=== PATIENT | female | born 1930 | race Caucasian/White ===

== ENCOUNTER 2018-09-18 09:38 | Inpatient (IN) ==
--- NOTE | 2018-09-18 10:14 | Emergency Department Note ---
SOB HPI - General Chief Complaint: Shortness of Breath/Dyspnea Stated Complaint: SOB Time Seen by Provider: 09/18/18 09:48 Source: patient Mode of arrival: wheelchair Limitations: no limitations - History of Present Illness This patient has had some mild shortness of breath for the last 2 to 3 days without cough or chest pain. [facility] and was found to be hypoxic and sent over here where her O2 saturation was 80% on room air. She certainly is in no distress and is comfortable. No recent edema. No history of asthma COPD heart failure. - Related Data Home Medications Medication Instructions Recorded Confirmed levothyroxine 137 mcg tablet 137 mcg PO QDAY tab 09/03/14 08/17/18 carboxymethylcellulose sodium 0.5 1 drp OPHTHALMIC QDAY PRN ml 12/10/17 08/17/18 % eye drops cholecalciferol (vitamin D3) 1,000 1,000 unit PO QDAY 12/10/17 08/17/18 unit capsule memantine 5 mg tablet 10 mg PO BID tab 12/10/17 08/17/18 chlorpheniramine 2 mg-DM 15 2 tab PO Q6H PRN 04/08/18 08/17/18 mg-acetaminophen 500 mg tablet capsaicin 0.1 % topical cream 1 applic TOPICAL BID PRN 08/04/18 08/17/18 donepezil 5 mg tablet 5 mg PO QDAY 08/04/18 08/17/18 Previous Rx's Medication Instructions Recorded citalopram 20 mg tablet 20 mg PO QDAY #7 tab 12/26/17 tamsulosin 0.4 mg capsule 0.4 mg PO QDAY #30 cap 06/08/18 carvedilol 6.25 mg tablet 6.25 mg PO BID 30 Days #60 tab 07/13/18 fluticasone furoate 100 1 inh INHALATION QDAY #28 each 07/30/18 mcg-vilanterol 25 mcg/dose inhalation powder amlodipine 5 mg tablet 10 mg PO QDAY #60 tab 08/04/18 prednisone 10 mg tablet See Rx Instructions .ROUTE 08/17/18 .COMPLEX #21 tab Allergies Allergy/AdvReac Type Severity Reaction Status Date / Time ciprofloxacin Allergy Unknown Unknown Verified 09/18/18 09:40 Sulfa (Sulfonamide Allergy Unknown Unknown Verified 09/18/18 09:40 Antibiotics) Review of Systems All systems ED: reviewed and negative except as stated. Past Medical History - Past Medical History [facility] Narrative: Medical History (Last Reviewed 09/18/18 @ 09:41 by Julieta Fontanez DO) Carotid stenosis (Chronic) Bilateral carotid bruits (Chronic) Pulmonary arterial hypertension (Chronic) Dermatitis (Acute) Memory dysfunction (Chronic) Heart murmur (Chronic) Hormone replacement therapy (HRT) (Chronic) Chronic kidney disease, stage IV (severe) (Chronic) Hyperparathyroidism due to renal insufficiency (Chronic) Edema (Chronic) Secondary hyperparathyroidism of renal origin (Chronic) Radiculopathy, lumbosacral or thoracic (Chronic) Progressive bulbar palsy (Chronic) UTI (urinary tract infection) (Chronic) Menopausal syndrome (Chronic) History of malignant neoplasm of kidney (Chronic) History of lymphoid leukemia (Chronic) Insomnia (Acute) Hypothyroidism (Acute) Hypertensive renal disease (Chronic) Hypertension, essential (Acute) Pure hypercholesterolemia (Acute) Cystocele, midline (Acute) Anxiety (Acute) Anemia in chronic kidney disease (Acute) Acquired absence of kidney (Acute) Acidosis (Resolved) Acute kidney failure (Resolved) History of hysterectomy (Resolved) Rectovaginal fistula (Resolved) Renal insufficiency (Resolved) Rhinitis, allergic (Resolved) Past Surgical History (Last Reviewed 08/04/18 @ 15:32 by Gigi Merino MD) History of nephrectomy (Acute) History of appendectomy (Resolved) History of bladder repair surgery (Resolved) Family History (Last Reviewed 08/04/18 @ 15:32 by Gigi Merino MD) Unknown Type 2 diabetes mellitus Family history of malignant neoplasm Other HTN (hypertension) - Social History smoking status: Never smoker Physical Exam Limitations: no limitations General appearance: alert Head: atraumatic Eye: Present: normal appearance ENT: normal exam Neck: Present: normal inspection Chest: Present: normal inspection Respiratory: Present: other (Decreased breath sounds at the bases) Cardiovascular: Present: regular rate, normal rhythm, normal heart sounds Neurological: Present: alert Psychiatric: Present: normal affect Skin: Present: warm, dry Course Vital Signs Temperature 97.4 F 09/18/18 09:40 Pulse Rate 72 09/18/18 09:40 Respiratory Rate 20 09/18/18 09:40 Blood Pressure 131/60 09/18/18 09:40 Pulse Oximetry (%) 82 L 09/18/18 09:40 Temperature 97.4 F 09/18/18 09:40 Pulse Rate 71 09/18/18 13:00 Respiratory Rate 20 09/18/18 09:40 Blood Pressure 138/67 09/18/18 13:01 Pulse Oximetry (%) 95 09/18/18 13:00 Shortness of Breath/Dyspnea - [facility] Narrative Medical decision making narrative: Patient's chest x-ray was read as showing heart failure and her BNP was 3700. She did have a white count 20,000 which is unexplained. We will do cultures and start empiric antibiotic out aches and she will be admitted to the hospital by Dr. Marie - Lab Data Lab results reviewed: Yes I reviewed the patient's lab results. Result diagrams: 09/18/18 09:51 09/18/18 09:51 Lab Results 09/18/18 09/18/18 09/18/18 Range/Units 09:51 09:51 09:51 WBC 20.4 H (4.5-11.0) K/mcL RBC 3.50 L (4.00-5.20) M/mcL Hgb 9.3 L (12.0-15.0) g/dL Hct 29.5 L (36.0-48.0) % MCV 84.3 (80.0-100.0) fL MCH 26.5 (26.0-34.0) pg MCHC 31.5 (31.0-36.0) g/dL RDW 18.8 H (11.5-14.5) % Plt Count 214 (140-440) K/mcL MPV 8.3 (7.4-10.4) fL Gran % 26.2 L (38.0-78.0) % Lymph % (Auto) 69.3 H (15.5-49.0) % [place] % (Auto) 3.2 (1.0-12.0) % Eos % (Auto) 1.0 (0.0-7.0) % Baso % (Auto) 0.3 (0.0-2.0) % Gran # 5.4 (1.8-8.0) K/mcL Lymph # (Auto) 14.1 H (1.5-4.8) K/mcL [place] # (Auto) 0.7 (0.1-0.9) K/mcL Eos # (Auto) 0.2 (0.0-0.7) K/mcL Baso # (Auto) 0.1 (0.0-0.3) K/mcL VBG Lactic Acid (0.5-2.0) mmol/L Sodium 140 (133-145) mmol/L Potassium 4.1 (3.3-5.1) mmol/L Chloride 105 (96-108) mmol/L Carbon Dioxide 22 (22-30) mmol/L Anion Gap 13.0 (8-16) BUN 41 H (8-23) mg/dl Creatinine 2.1 H (0.6-1.1) mg/dl GFR Calculation 20 Glucose 110 H (70-105) mg/dL Calcium 8.6 (8.6-10.4) mg/dl Total Bilirubin 0.5 (0.0-1.0) mg/dL AST 9 (0-37) U/l ALT 10 (0-40) U/l Alkaline Phosphatase 81 (39-117) U/L Troponin T (0-0.03) ng/ml NT-Pro-B Natriuret Pep 3731.0 H (0-450) pg/ml Total Protein 6.2 (5.9-8.4) gm/dL Albumin 3.7 (3.2-5.2) gm/dL Globulin 2.5 (2.2-3.7) gm/dL Albumin/Globulin Ratio 1.5 (1.0-2.3) 09/18/18 09/18/18 Range/Units 09:51 11:25 WBC (4.5-11.0) K/mcL RBC (4.00-5.20) M/mcL Hgb (12.0-15.0) g/dL Hct (36.0-48.0) % MCV (80.0-100.0) fL MCH (26.0-34.0) pg MCHC (31.0-36.0) g/dL RDW (11.5-14.5) % Plt Count (140-440) K/mcL MPV (7.4-10.4) fL Gran % (38.0-78.0) % Lymph % (Auto) (15.5-49.0) % [place] % (Auto) (1.0-12.0) % Eos % (Auto) (0.0-7.0) % Baso % (Auto) (0.0-2.0) % Gran # (1.8-8.0) K/mcL Lymph # (Auto) (1.5-4.8) K/mcL [place] # (Auto) (0.1-0.9) K/mcL Eos # (Auto) (0.0-0.7) K/mcL Baso # (Auto) (0.0-0.3) K/mcL VBG Lactic Acid 0.6 (0.5-2.0) mmol/L Sodium (133-145) mmol/L Potassium (3.3-5.1) mmol/L Chloride (96-108) mmol/L Carbon Dioxide (22-30) mmol/L Anion Gap (8-16) BUN (8-23) mg/dl Creatinine (0.6-1.1) mg/dl GFR Calculation Glucose (70-105) mg/dL Calcium (8.6-10.4) mg/dl Total Bilirubin (0.0-1.0) mg/dL AST (0-37) U/l ALT (0-40) U/l Alkaline Phosphatase (39-117) U/L Troponin T < 0.01 (0-0.03) ng/ml NT-Pro-B Natriuret Pep (0-450) pg/ml Total Protein (5.9-8.4) gm/dL Albumin (3.2-5.2) gm/dL Globulin (2.2-3.7) gm/dL Albumin/Globulin Ratio (1.0-2.3) - Radiology Data Radiology results reviewed: Yes I reviewed the patient's radiology results. Disposition Pt seen by PHYSICIAN PRESIDENT/PA only: No Clinical Impression: Congestive heart failure Disposition: Xfer As Inpt ([facility]) Condition: Good Referrals: William Redd MD, FAAFP [Primary Care Provider] - Time of Disposition: 13:13
[2018-09-18 10:27] LABS: Basophils # (Auto) 0.1 K/mcL (0.0-0.3); Basophils % (Auto) 0.3 % (0.0-2.0); Eosinophils # (Auto) 0.2 K/mcL (0.0-0.7); Granulocytes % (Auto) 26.2 % (38.0-78.0); Hematocrit 29.5 % (36.0-48.0); Hemoglobin 9.3 g/dL (12.0-15.0); Lymphocytes # (Auto) 14.1 K/mcL (1.5-4.8); Lymphocytes % (Auto) 69.3 % (15.5-49.0); Mean Cell Volume 84.3 fL (80.0-100.0); Mean Corpuscular HGB Conc 31.5 g/dL (31.0-36.0); Mean Platelet Volume 8.3 fL (7.4-10.4); Monocytes # (Auto) 0.7 K/mcL (0.1-0.9); Monocytes % (Auto) 3.2 % (1.0-12.0); Platelet Count 214 K/mcL (140-440); Red Cell Distribution Width 18.8 % (11.5-14.5); WBC 20.4 K/mcL (4.5-11.0)
[2018-09-18 10:43] LABS: ALT/SGPT 10 U/l (0-40); AST/SGOT 9 U/l (0-37); Albumin 3.7 gm/dL (3.2-5.2); Albumin/Globulin Ratio 1.5 (1.0-2.3); Alkaline Phosphatase 81 U/L (39-117); Bilirubin,Total 0.5 mg/dL (0.0-1.0); Blood Urea Nitrogen 41 mg/dl (8-23); Calcium 8.6 mg/dl (8.6-10.4); Carbon Dioxide 22 mmol/L (22-30); Chloride 105 mmol/L (96-108); Globulin 2.5 gm/dL (2.2-3.7); Glomerular Filtration Rate 20; Glucose 110 mg/dL (70-105)
--- NOTE | 2018-09-18 11:35 | XRay Report ---
CLINICAL INFORMATION: SOB COMPARISON: 06/29/2018 FINDINGS: The heart is now moderately enlarged. Mediastinum is unremarkable. Pulmonary vessels are mildly distended and is mild interstitial edema throughout both lungs. Moderate left and small right pleural effusion have developed and there is mild compressive atelectasis in both lower lobes. IMPRESSION: Moderate CHF. Moderate left and small right pleural effusion with minor overlying lower lobe atelectasis Interpreted and Authenticated by: Meño Adams 09/18/18
[2018-09-18] MEDS ORDERED: FUROSEMIDE 20 MG/2 ML VIAL IV ONE (12:09)
[2018-09-18] MEDS ORDERED: cefTRIAXone 1 GM VIAL IV ONE (13:11)
[2018-09-18] MEDS ORDERED: LEVOFLOXACIN 750 MG/150 ML BAG IV ONE (13:11)
[2018-09-18] MEDS ORDERED: AZITHROMYCIN 500 MG in DEXTROSE 5% IN WATER 250 ML IV ONE (13:23)
--- NOTE | 2018-09-18 13:39 | Internal Med History&Physical ---
Medical - H&P: [facility] Patient information: Note initiated : 09/18/18 at 1:35 pm Service Date, if different from initiated Date: [] Patient: Mihaela Drake a 88 y/o F admitted on for Shortness of breath. Chief Complaint: [] Chief complaint: SOB History of present illness: Ms. Drake is a 88 year old F resident of [facility] assisted living who presents to the ER with 3-day onset of worsening shortness of breath. Patient has been at baseline state of health however over the last 48 hours has dramatically declined with increasing shortness of breath and decreasing mobility and functionality. Patient has not been able to perform activities of daily living. She was subsequently evaluated at the ER. Initial work-up was consistent with CHF exacerbation on imaging along with white count over 20,000. Patient was started on antibiotic coverage along with initiation of diuresis. However exact source of infection could not be identified. Echocardiogram from April 2018 shows preserved EF. Hospitalist service was consulted for admission in light of above. At the time of evaluation patient is alert oriented. She is feeling better. Able to answer most of the question and endorsed to history as above. She denies recent changes in medication. She denies productive sputum, shaking chills, chest pain or unilateral weakness. She further denies diarrhea dysuria joint pain but endorses to frequent bruising. She denies high salt diet. She denies choking episodes. 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) Edema (Chronic) Secondary hyperparathyroidism of renal origin (Chronic) PTH now supressed to 53, calcium at goal, vitamin D is adequate at 48 reduce calcitriol to 0.25mcg every other day ct cholecalciferol will monitor will monitor will monitor Radiculopathy, lumbosacral or thoracic (Chronic) Progressive bulbar palsy (Chronic) UTI (urinary tract infection) (Chronic) Menopausal syndrome (Chronic) History of malignant neoplasm of kidney (Chronic) History of lymphoid leukemia (Chronic) Insomnia (Acute) Hypothyroidism (Acute) Hypertensive renal disease (Chronic) BP at goal today ct amlodipine, coreg and torsemide follow low sodium diet will monitor Hypertension, essential (Acute) Pure hypercholesterolemia (Acute) Cystocele, midline (Acute) Anxiety (Acute) Anemia in chronic kidney disease (Acute) Acquired absence of kidney (Acute) Acidosis (Resolved) Acute kidney failure (Resolved) History of hysterectomy (Resolved) Rectovaginal fistula (Resolved) Renal insufficiency (Resolved) Rhinitis, allergic (Resolved) Surgical History History of nephrectomy (Acute) History of appendectomy (Resolved) History of bladder repair surgery (Resolved) Family History Unknown Type 2 diabetes mellitus Family history of malignant neoplasm Other HTN (hypertension) Social History marital status: occupational status: retired other: 07/2012 smoking status: Never smoker alcohol intake frequency: does not drink substance use type: does not use Medical - H&P: Meds Home Medications Medication Instructions Recorded Confirmed Type levothyroxine 137 mcg tablet 137 mcg PO QDAY tab 09/03/14 09/18/18 History carboxymethylcellulose sodium 0.5 1 drp OPHTHALMIC QDAY PRN ml 12/10/17 09/18/18 History % eye drops cholecalciferol (vitamin D3) 1,000 1,000 unit PO QDAY 12/10/17 09/18/18 History unit capsule memantine 5 mg tablet 10 mg PO BID tab 12/10/17 09/18/18 History citalopram 20 mg tablet 20 mg PO QDAY #7 tab 12/26/17 09/18/18 Rx carvedilol 6.25 mg tablet 6.25 mg PO BID 30 Days #60 tab 07/13/18 09/18/18 Rx fluticasone furoate 100 1 inh INHALATION QDAY #28 each 07/30/18 09/18/18 Rx mcg-vilanterol 25 mcg/dose inhalation powder amlodipine 5 mg tablet 10 mg PO QDAY #60 tab 08/04/18 09/18/18 Rx capsaicin 0.1 % topical cream 1 applic TOPICAL BID PRN 08/04/18 09/18/18 History Acetaminophen [Pain Reliever] 500 mg PO Q8 PRN 09/18/18 09/18/18 History Acetaminophen/Chlorpheniramine 2 each PO Q6 09/18/18 09/18/18 History [Coricidin Hbp Cold & Flu Tab] Aspirin [Lite Coat Aspirin] 325 mg PO DAILY 09/18/18 09/18/18 History Donepezil [Aricept] 10 mg PO DAILY 09/18/18 09/18/18 History Menthol [Cough Drops] 5 mg MM PRN PRN 09/18/18 09/18/18 History Tamsulosin [Flomax] 0.4 mg PO ONCE 09/18/18 09/18/18 History Allergies Allergy/AdvReac Type Severity Reaction Status Date / Time ciprofloxacin Allergy Unknown Unknown Verified 09/18/18 09:40 Sulfa (Sulfonamide Allergy Unknown Unknown Verified 09/18/18 09:40 Antibiotics) Medical - H&P: Exam - Constitutional Vitals: Temp Pulse Resp BP Pulse Ox 97.4 F 72 20 144/65 94 09/18/18 09:40 09/18/18 13:35 09/18/18 09:40 09/18/18 13:31 09/18/18 13:35 General appearance: average body habitus, no acute distress Exam: Alert oriented Eye movement symmetrical Oral cavity dry No ear nose discharge Head normocephalic Neck no lymphadenopathy S1-S2 occasionally irregular, ESM grade 1 diminished breath sounds bilateral bases Abdomen soft nontender Lower extremity no cyanosis clubbing no joint swelling Skin no suspicious lesion Psych alert cooperative Neuro nonfocal Medical - H&P: Reslt - Labs CBC & Chem 7: 09/19/18 03:45 09/19/18 03:45 Labs: Short CBC 09/18/18 Range/Units 09:51 WBC 20.4 H (4.5-11.0) K/mcL Hgb 9.3 L (12.0-15.0) g/dL Hct 29.5 L (36.0-48.0) % Plt Count 214 (140-440) K/mcL BMP 09/18/18 09:51 Sodium 140 Potassium 4.1 Chloride 105 Carbon Dioxide 22 BUN 41 H Creatinine 2.1 H Glucose 110 H Calcium 8.6 Cardiac Enzymes 09/18/18 Range/Units 09:51 Troponin T < 0.01 (0-0.03) ng/ml Liver Function 09/18/18 Range/Units 09:51 Total Bilirubin 0.5 (0.0-1.0) mg/dL AST 9 (0-37) U/l ALT 10 (0-40) U/l Alkaline Phosphatase 81 (39-117) U/L Albumin 3.7 (3.2-5.2) gm/dL Medical - H&P: A/P (1) Congestive heart failure Current visit: Yes Status: Acute * Acute decompensate heart failure diastolic with preserved ejection fraction as of echo April 2018 61% EF. Continue diuresis/supplemental oxygen/low-salt diet and medication optimization. Admit to telemetry * Leukocytosis/early sepsis. White count 20,000. Unclear etiology. Empiric antibiotic initiated after boudreaux cultures. Continue source evaluation. De- escalate antibiotics based on cultures. * Dyspnea with hypoxia secondary to above. Continue supplemental oxygen/pulmonary toilet/bronchodilators * History of dementia continue donepezil/memantine * Anxiety disorder continue citalopram * Hypothyroidism continue thyroxine * History of COPD continue bronchodilators/steroids * Hypertension continue amlodipine/Coreg * DNR * Prophylaxis heparin Plan * Broad antibiotic coverage * Supplemental oxygen/pulmonary toilet * Initiate aggressive diuresis * Inpatient telemetry admit in light of advanced age/PSI over 100/acute dec ompensated heart failure * Aggressive source evaluation pre-existing well condition management as above
[2018-09-18] MEDS ORDERED: ONDANSETRON 4 MG/2 ML VIAL IV PRN (14:51)
[2018-09-18] MEDS ORDERED: MAGNESIUM SULFATE 2 GM/50 ML BAG IV PRN (14:51)
[2018-09-18] MEDS ORDERED: ACETAMINOPHEN 1,000 MG/100 ML BOTTLE IV PRN (14:51)
[2018-09-18] MEDS ORDERED: ACETAMINOPHEN 325 MG TABLET PO PRN (14:51)
[2018-09-18] MEDS ORDERED: POTASSIUM CHLORIDE 40 MEQ in DEXTROSE 5% IN WATER 500 ML IV PRN (14:51)
[2018-09-18] MEDS: 0.9 % SODIUM CHLORIDE 10 ML SYRINGE IV SCH ×4 (15:12→21:04)
[2018-09-18] MEDS: PIPERACILLIN SODIUM/TAZOBACTAM 2.25 GM in DEXTROSE 5% IN WATER 50 ML IV SCH ×3 (15:44→23:51)
[2018-09-18] MEDS: IPRATROPIUM/ALBUTEROL 3 ML AMPUL.NEB NEB SCH ×3 (15:48→23:07)
[2018-09-18] MEDS: FUROSEMIDE 40 MG/4 ML VIAL IV SCH (16:20)
[2018-09-18] MEDS ORDERED: ACETAMINOPHEN 500 MG TABLET PO PRN (18:26)
[2018-09-18] MEDS ORDERED: MENTHOL 5 MG MM PRN (18:26)
[2018-09-18] MEDS ORDERED: CAPSAICIN TOPICAL PRN (18:26)
[2018-09-18] MEDS ORDERED: CARBOXYMETHYLCELLULOSE SODIUM D OPHTHALMIC PRN (18:26)
[2018-09-18] MEDS: BUDESONIDE 0.5 MG/2 ML AMPUL.NEB NEB SCH (18:59)
[2018-09-18] MEDS ORDERED: traZODone HCL 50 MG TABLET PO PRN (21:00)
[2018-09-18] MEDS ORDERED: MELATONIN 3 MG TABLET PO PRN (21:00)
[2018-09-18] MEDS: DOCUSATE SODIUM 100 MG CAPSULE PO SCH (21:03)
[2018-09-18] MEDS: MEMANTINE 10 MG TABLET PO SCH (21:03)
[2018-09-18] MEDS: TAMSULOSIN 0.4 MG CAPSULE PO SCH (21:03)
[2018-09-18] MEDS: SENNOSIDES/DOCUSATE SODIUM 1 TAB TABLET PO SCH (21:03)
[2018-09-18] MEDS: CARVEDILOL 6.25 MG TABLET PO SCH ×2 (21:04)
[2018-09-18] MEDS: HEPARIN 5,000 UNIT/ML VIAL SQ SCH (21:04)
[2018-09-19] MEDS ORDERED: CHLORPHENIRAMINE PO SCH
[2018-09-19] MEDS ORDERED: [UNRECOGNIZED DRUG - OTHER] PO SCH
[2018-09-19] MEDS ORDERED: ACETAMINOPHEN PO SCH
[2018-09-19] MEDS: PIPERACILLIN SODIUM/TAZOBACTAM 2.25 GM in DEXTROSE 5% IN WATER 50 ML IV SCH ×4 (05:30→23:57)
[2018-09-19] MEDS: IPRATROPIUM/ALBUTEROL 3 ML AMPUL.NEB NEB SCH ×6 (05:30→22:46)
[2018-09-19] MEDS: 0.9 % SODIUM CHLORIDE 10 ML SYRINGE IV SCH ×8 (05:31→21:04)
[2018-09-19 05:35] LABS: Hematocrit 25.9 % (36.0-48.0); Hemoglobin 8.3 g/dL (12.0-15.0); Mean Cell Volume 85.4 fL (80.0-100.0); Mean Platelet Volume 8.4 fL (7.4-10.4); Platelet Count 190 K/mcL (140-440); RBC 3.03 M/mcL (4.00-5.20); Red Cell Distribution Width 19.5 % (11.5-14.5); WBC 16.3 K/mcL (4.5-11.0)
[2018-09-19 05:51] LABS: ALT/SGPT 8 U/l (0-40); AST/SGOT 8 U/l (0-37); Albumin 3.1 gm/dL (3.2-5.2); Albumin/Globulin Ratio 1.3 (1.0-2.3); Alkaline Phosphatase 69 U/L (39-117); Bilirubin,Direct < 0.2 mg/dL (0.0-0.3); Bilirubin,Total 0.6 mg/dL (0.0-1.0); Blood Urea Nitrogen 39 mg/dl (8-23); C-Reactive Protein 2.3 mg/dl (0.0-0.8); Carbon Dioxide 24 mmol/L (22-30); Chloride 103 mmol/L (96-108); Globulin 2.3 gm/dL (2.2-3.7); Glomerular Filtration Rate 20; Glucose 79 mg/dL (70-105); Lactate Dehydrogenase 240 U/L (94-250); Phosphorous 5.4 mg/dL (2.7-4.5); Triglycerides 66 mg/dl (<150); Uric Acid 9.5 mg/dL (2.5-8.0)
[2018-09-19 06:36] LABS: Erythrocyte Sedimentation Rate 22 mm/hr (0-20)
[2018-09-19 06:57] LABS: Anisocytosis 1+ (NONE SEEN); Band Neutrophils % 1 % (0-10); Eosinophils % (Manual) 3 % (0-7); Hypochromasia 1+ (NONE SEEN); Lymphocytes % 65 % (15-49); Monocytes % (Manual) 3 % (1-12); Platelet Estimate NORMAL (NORMAL); Polychromasia FEW (NONE SEEN); RBC Morphology ABNORM (NORMAL); Reactive Lymphocytes 4 % (0-2); Segmented Neutrophils % 24 % (38-78)
[2018-09-19] MEDS: LEVOTHYROXINE 25 MCG TABLET PO SCH (07:32)
[2018-09-19] MEDS: LEVOTHYROXINE SODIUM 112 MCG TABLET PO SCH (07:32)
[2018-09-19] MEDS: BUDESONIDE 0.5 MG/2 ML AMPUL.NEB NEB SCH ×2 (07:53→22:46)
[2018-09-19] MEDS ORDERED: VANCOMYCIN PER PHARMACY IV SCH (08:02)
[2018-09-19] MEDS: CARVEDILOL 6.25 MG TABLET PO SCH ×2 (08:05→17:51)
[2018-09-19] MEDS: FUROSEMIDE 40 MG/4 ML VIAL IV SCH ×2 (08:05→16:14)
[2018-09-19] MEDS ORDERED: VANCOMYCIN 1,000 MG in 0.9 % SODIUM CHLORIDE 250 ML IV ONE (09:00)
[2018-09-19] MEDS: amLODIPine 10 MG TABLET PO SCH (09:20)
[2018-09-19] MEDS: CITALOPRAM 20 MG TABLET PO SCH (09:20)
[2018-09-19] MEDS: DOCUSATE SODIUM 100 MG CAPSULE PO SCH ×2 (09:20→21:04)
[2018-09-19] MEDS: MULTIVIT,THER IRON,CA,FA & MIN 1 TABLET PO SCH (09:21)
[2018-09-19] MEDS: VITAMIN D3 1,000 UNIT TABLET PO SCH (09:21)
[2018-09-19] MEDS: THIAMINE 100 MG TABLET PO SCH (09:21)
[2018-09-19] MEDS: FOLIC ACID 1 MG TABLET PO SCH (09:21)
[2018-09-19] MEDS: DONEPEZIL 10 MG TABLET PO SCH (09:21)
[2018-09-19] MEDS: ASPIRIN 325 MG ENTERIC COATED TABLET PO SCH (09:21)
[2018-09-19] MEDS: HEPARIN 5,000 UNIT/ML VIAL SQ SCH ×2 (09:21→21:03)
[2018-09-19] MEDS: MEMANTINE 10 MG TABLET PO SCH ×2 (09:21→21:05)
[2018-09-19] MEDS: Fluticasone/Vilanterol [Breo Ellipta] 100-25 Mcg Inhaler INH SCH (09:31)
[2018-09-19 10:12] LABS: Appearance,Urine HAZY; Bacteria,Urine FEW /hpf (0); Bilirubin,Urine NEG (NEG); Color,Urine YELLOW; Culture Indicated,Urine NO; Glucose,Urine (UA) NEGATIVE (NEG); Ketones,Urine NEG (NEG); Leukocyte Esterase,Urine 500 /uL (NEG); Nitrate,Urine NEG (NEG); Protein,Urine NEG (NEG); Specific Gravity,Urine 1.009 (1.000-1.035); Urine Blood 0.03 mg/dL (<0.03); Urine RBC 8 /hpf (0-1); Urine Squamous Epithelial Cell 1 /hpf (0-4); Urine WBC > 182 /hpf (0-4); Urobilinogen,Urine NEG (NEG)
--- NOTE | 2018-09-19 10:20 | Internal Med Progress Note ---
Medical - PN: Subj Patient information: Note initiated : 09/19/18 at 10:14 am Service Date, if different from initiated Date: [] Patient: Mihaela Drake a 88 y/o F admitted on 09/18/18 for Shortness of breath. Chief Complaint: [] Interval history: Ms. Drake is a 88 year old F resident of [facility] assisted living who presents to the ER with 3-day onset of worsening shortness of breath. Patient has been at baseline state of health however over the last 48 hours has dramatically declined with increasing shortness of breath and decreasing mobility and functionality. Patient has not been able to perform activities of daily living. She was subsequently evaluated at the ER. Initial work-up was consistent with CHF exacerbation on imaging along with white count over 20,000. Patient was started on antibiotic coverage along with initiation of diuresis. However exact source of infection could not be identified. Echocardiogram from April 2018 shows preserved EF. Hospitalist service was consulted for admission in light of above. At the time of evaluation patient is alert oriented. She is feeling better. Able to answer most of the question and endorsed to history as above. She denies recent changes in medication. She denies productive sputum, shaking chills, chest pain or unilateral weakness. She further denies diarrhea dysuria joint pain but endorses to frequent bruising. She denies high salt diet. She denies choking episodes. 09/19-patient doing well. Diuresed well overnight. Improved shortness of breath. Able to talk in full sentences. Blood cultures positive for gram- positive cocci. Vancomycin initiated. Unclear source. However white count down from 20,400-16.3. Afebrile. UA shows significant pyuria. Await cultures. Continue antibiotic coverage. - Constitutional Vitals: Vital Signs Temp Pulse Resp BP Pulse Ox 98.7 F 77 16 147/62 95 09/19/18 07:42 09/19/18 07:55 09/19/18 07:55 09/19/18 07:42 09/19/18 07:55 Period Temp Pulse Resp BP Sys/Dejesus Pulse Ox Last 24 Hr 96.9 F-98.7 F 64-83 13-24 129-147/55-71 85-97 Intake and Output 09/18/18 09/19/18 09/19/18 21:59 05:59 13:59 Intake Total 450 50 420 Output Total 381 2 77 Balance 69 48 343 Weight 135 lb 4 oz Intake & Output: Intake & Output 09/18/18 09/19/18 09/19/18 21:59 05:59 13:59 Intake Total 450 50 420 Output Total 381 2 77 Balance 69 48 343 Weight 135 lb 4 oz Intake: IV 350 50 300 Zithromax 500 mg In Dextrose 5% 250 in Water 250 ml @ 250 mls/hr IV ONCE ONE Rx#:[id number] Zosyn 2.25 gm In Dextrose 5% in 100 50 50 Water 50 ml @ 100 mls/hr IV Q6H [facility] Rx#:[id number] Vancomycin 1,000 mg In Sodium 250 Chloride 0.9% 250 ml @ 250 mls/ hr IV ONCE ONE Rx#:[id number] Oral 100 120 Output: Urine Catheter Amount 200 Void Amount 175 75 # of times incontinent of urine 6 2 2 Other: Meal Dinner Percent of Meal Consumed 75% Urine Appearance Clear Urine Color Pale Urine Odor Strong Strong General appearance: no acute distress Exam: Alert and oriented Nonlabored breathing No anxiety Lymphedema improved ESM grade 1 Medical - PN: Obj Da - Labs CBC & Chem 7: 09/19/18 03:45 09/19/18 03:45 Labs: Abnormal Lab Results 09/19/18 09/19/18 09/19/18 08:55 03:45 03:45 WBC 16.3 H RBC 3.03 L Hgb 8.3 L Hct 25.9 L RDW 19.5 H Gran % Lymph % (Auto) Lymph # (Auto) Seg Neutrophils % 24 L Lymphocytes % 65 H WBC Morphology Abnorm A Hypersegmented Polys Rare A Reactive Lymphocytes 4 H RBC Morphology Abnorm A Polychromasia Few A Hypochromasia 1+ A Anisocytosis 1+ A ESR 22 H BUN 39 H Creatinine 2.1 H Glucose Uric Acid 9.5 H Calcium 8.0 L Phosphorus 5.4 H C-Reactive Protein 2.3 H NT-Pro-B Natriuret Pep Total Protein 5.4 L Albumin 3.1 L Urine Occult Blood 0.03 A Ur Leukocyte Esterase 500 A Urine RBC 8 H Urine WBC > 182 H Urine Bacteria Few A 09/18/18 09/18/18 09/18/18 09:51 09:51 09:51 WBC 20.4 H RBC 3.50 L Hgb 9.3 L Hct 29.5 L RDW 18.8 H Gran % 26.2 L Lymph % (Auto) 69.3 H Lymph # (Auto) 14.1 H Seg Neutrophils % Lymphocytes % WBC Morphology Hypersegmented Polys Reactive Lymphocytes RBC Morphology Polychromasia Hypochromasia Anisocytosis ESR BUN 41 H Creatinine 2.1 H Glucose 110 H Uric Acid Calcium Phosphorus C-Reactive Protein NT-Pro-B Natriuret Pep 3731.0 H Total Protein Albumin Urine Occult Blood Ur Leukocyte Esterase Urine RBC Urine WBC Urine Bacteria Meds: Medications Acetaminophen (Tylenol) 650 mg PO Q4-6HP PRN PRN Reason: PAIN/FEVER > 101 Albuterol/Ipratropium (Duoneb) 3 ml NEB Q4HRT [facility] Last Admin: 09/19/18 07:53 Dose: 3 ml Documented by: Amlodipine Besylate (Norvasc) 10 mg PO DAILY [facility] Last Admin: 09/19/18 09:20 Dose: 10 mg Documented by: Aspirin (Ecotrin) 325 mg PO DAILY [facility] Last Admin: 09/19/18 09:21 Dose: 325 mg Documented by: Budesonide (Pulmicort) 0.5 mg NEB Q12 [facility] Last Admin: 09/19/18 07:53 Dose: 0.5 mg Documented by: Carvedilol (Coreg) 6.25 mg PO BIDCC [facility] Last Admin: 09/19/18 08:05 Dose: 6.25 mg Documented by: Citalopram Hydrobromide (Celexa) 20 mg PO QDAY [facility] Last Admin: 09/19/18 09:20 Dose: 20 mg Documented by: Docusate Sodium (Colace) 100 mg PO BID [facility] Last Admin: 09/19/18 09:20 Dose: 100 mg Documented by: Donepezil HCl (Aricept) 10 mg PO DAILY [facility] Last Admin: 09/19/18 09:21 Dose: 10 mg Documented by: Folic Acid (Folic Acid) 1 mg PO DAILY [facility] Last Admin: 09/19/18 09:21 Dose: 1 mg Documented by: Furosemide (Lasix) 40 mg IV BIDD [facility] Last Admin: 09/19/18 08:05 Dose: 40 mg Documented by: Heparin Sodium (Porcine) (Heparin) 5,000 unit SQ Q12 [facility] Last Admin: 09/19/18 09:21 Dose: 5,000 unit Documented by: Potassium Chloride 40 meq/ (Dextrose) 520 mls @ 130 mls/hr IV UD PRN PRN Reason: K+ = or < 3.5 Magnesium Sulfate (Magnesium Sulfate) 2 gm in 50 mls @ 50 mls/hr IV UD PRN PRN Reason: MG = or < 1.7 Acetaminophen (Ofirmev) 1,000 mg in 100 mls @ 200 mls/hr IV Q6HP PRN PRN Reason: PAIN/FEVER > 101 Piperacillin Sod/Tazobactam (Sod 2.25 gm/ Dextrose) 50 mls @ 100 mls/hr IV Q6H [facility]; Protocol Last Infusion: 09/19/18 06:16 Dose: Infused Documented by: Iron Carb/Multivit/[place]/Folic Acid (Multivitamin W/Minerals) 1 tab PO DAILY [facility] Last Admin: 09/19/18 09:21 Dose: 1 tab Documented by: [facility]ine [facility]) [facility] Last Admin: 09/19/18 07:32 Dose: 112 mcg Documented by: Levothyroxine S[facility] ([facility]throid) [facility] Last Admin: 09/19/18 07:32 Dose: 25 mcg Documented by: Melatonin (Melatonin 3mg Tablet) 3 mg PO HSP PRN PRN Reason: Insomnia Last Admin: 09/18/18 21:03 Dose: 3 mg Documented by: Memantine (Namenda) 10 mg PO BID [facility] Last Admin: 09/19/18 09:21 Dose: 10 mg Documented by: Ondansetron HCl (Zofran) 4 mg IV Q4-6HP PRN PRN Reason: Nausea And Vomiting Fluticasone/Vilanterol [Breo Ellipta] 100-25 Mcg Inhaler 1 dose INH QDAY [facility] Last Admin: 09/19/18 09:31 Dose: Not Given Documented by: Senna/Docusate Sodium (Senna Plus Tablet) 1 tab PO [facility] Last Admin: 09/18/18 21:03 Dose: 1 tab Documented by: Sodium Chloride (Saline Flush) 10 ml IV Q8 [facility] Last Admin: 09/19/18 08:23 Dose: 10 ml Documented by: Tamsulosin HCl (Flomax) 0.4 mg PO [facility] Last Admin: 09/18/18 21:03 Dose: 0.4 mg Documented by: Thiamine HCl (Vitamin B1) 100 mg PO DAILY [facility] Last Admin: 09/19/18 09:21 Dose: 100 mg Documented by: Trazodone HCl (Desyrel) 50 mg PO HSP PRN PRN Reason: Insomnia Vancomycin HCl (Vancomycin Per Pharmacy) 1 order IV UD [facility]; Protocol Vitamin D (Vitamin D3) 1,000 unit PO DAILY [facility] Last Admin: 09/19/18 09:21 Dose: 1,000 unit Documented by: Medical - PN: A/P - Time Spent With Patient Total time spent is greater than 50% in coordination of care (as documented) at patient's floor/unit and/or counseling patient: 25 - 35 minutes (1) Congestive heart failure Status: Acute Assessment and plan: * Acute decompensate heart failure diastolic with preserved ejection fraction as of April 2018 61% EF. Clincally improving with aggressive diuresis/supplemental oxygen/low-salt diet and medication optimization. * Severe sepsis-clinically improving with downtrending white count from 20.4- 16.3. Likely source complicated UTI. Await culture sensitivities. * Complicated UTI continue antibiotic coverage. Await culture sensitivities. * Dyspnea with hypoxia secondary to above. Clinical improvement noted with aggressive diuresis. Continue supplemental oxygen/pulmonary toilet/bronchodilators * History of dementia continue donepezil/memantine * Anxiety disorder continue citalopram * Hypothyroidism continue thyroxine * History of COPD continue bronchodilators/steroids * Hypertension continue amlodipine/Coreg * DNR * Prophylaxis heparin Plan * Continue antibiotic coverage and deescalate based on Cx * Supplemental oxygen/pulmonary toilet * Aggressive diuresis * Prior med conditions Mx on home meds Current Visit: Yes Medical - PN: Qual - Stroke Symptom Onset Unknown: No - VTE Deep Vein Thrombosis/Pulmonary Embolism Present on Admission: No
[2018-09-19] MEDS: TAMSULOSIN 0.4 MG CAPSULE PO SCH (21:03)
[2018-09-19] MEDS: SENNOSIDES/DOCUSATE SODIUM 1 TAB TABLET PO SCH (21:04)
[2018-09-20] MEDS: IPRATROPIUM/ALBUTEROL 3 ML AMPUL.NEB NEB SCH ×4 (03:13→21:03)
[2018-09-20 05:07] LABS: Hematocrit 28.8 % (36.0-48.0); Hemoglobin 9.2 g/dL (12.0-15.0); Mean Cell Volume 84.1 fL (80.0-100.0); Mean Corpuscular HGB Conc 31.9 g/dL (31.0-36.0); Mean Platelet Volume 8.8 fL (7.4-10.4); Platelet Count 188 K/mcL (140-440); RBC 3.43 M/mcL (4.00-5.20); Red Cell Distribution Width 19.1 % (11.5-14.5); WBC 18.8 K/mcL (4.5-11.0)
[2018-09-20] MEDS: PIPERACILLIN SODIUM/TAZOBACTAM 2.25 GM in DEXTROSE 5% IN WATER 50 ML IV SCH ×3 (05:44→17:18)
[2018-09-20] MEDS: 0.9 % SODIUM CHLORIDE 10 ML SYRINGE IV SCH ×5 (05:44→20:19)
[2018-09-20 06:01] LABS: ALT/SGPT 10 U/l (0-40); AST/SGOT 11 U/l (0-37); Albumin 3.4 gm/dL (3.2-5.2); Albumin/Globulin Ratio 1.3 (1.0-2.3); Alkaline Phosphatase 72 U/L (39-117); Bilirubin,Direct < 0.2 mg/dL (0.0-0.3); Bilirubin,Total 0.6 mg/dL (0.0-1.0); Blood Urea Nitrogen 38 mg/dl (8-23); Calcium 8.2 mg/dl (8.6-10.4); Carbon Dioxide 24 mmol/L (22-30); Chloride 101 mmol/L (96-108); Globulin 2.7 gm/dL (2.2-3.7); Glomerular Filtration Rate 20; Glucose 75 mg/dL (70-105); Lactate Dehydrogenase 287 U/L (94-250); Phosphorous 5.1 mg/dL (2.7-4.5); Triglycerides 65 mg/dl (<150); Uric Acid 9.3 mg/dL (2.5-8.0)
[2018-09-20 06:19] LABS: Anisocytosis 1+ (NONE SEEN); Eosinophils % (Manual) 3 % (0-7); Hypochromasia 1+ (NONE SEEN); Lymphocytes % 56 % (15-49); Monocytes % (Manual) 4 % (1-12); Platelet Estimate NORMAL (NORMAL); Polychromasia 1+ (NONE SEEN); RBC Fragments RARE (NONE SEEN); RBC Morphology ABNORM (NORMAL); Reactive Lymphocytes 5 % (0-2); Segmented Neutrophils % 32 % (38-78); Smudge Cells 1+ (NONE SEEN)
[2018-09-20] MEDS: LEVOTHYROXINE 25 MCG TABLET PO SCH (07:22)
[2018-09-20] MEDS: LEVOTHYROXINE SODIUM 112 MCG TABLET PO SCH (07:22)
[2018-09-20] MEDS: BUDESONIDE 0.5 MG/2 ML AMPUL.NEB NEB SCH ×2 (08:55→21:03)
[2018-09-20] MEDS: FOLIC ACID 1 MG TABLET PO SCH (09:00)
[2018-09-20] MEDS: ASPIRIN 325 MG ENTERIC COATED TABLET PO SCH (09:00)
[2018-09-20] MEDS: FUROSEMIDE 40 MG/4 ML VIAL IV SCH ×2 (09:00→15:30)
[2018-09-20] MEDS: CARVEDILOL 6.25 MG TABLET PO SCH ×2 (09:00→17:17)
[2018-09-20] MEDS: amLODIPine 10 MG TABLET PO SCH (09:01)
[2018-09-20] MEDS: CITALOPRAM 20 MG TABLET PO SCH (09:01)
[2018-09-20] MEDS: HEPARIN 5,000 UNIT/ML VIAL SQ SCH ×2 (09:01→20:15)
[2018-09-20] MEDS: MULTIVIT,THER IRON,CA,FA & MIN 1 TABLET PO SCH (09:24)
[2018-09-20] MEDS: THIAMINE 100 MG TABLET PO SCH (09:24)
[2018-09-20] MEDS: VITAMIN D3 1,000 UNIT TABLET PO SCH (09:24)
[2018-09-20] MEDS: DONEPEZIL 10 MG TABLET PO SCH (09:24)
[2018-09-20] MEDS: MEMANTINE 10 MG TABLET PO SCH ×2 (09:24→20:16)
[2018-09-20] MEDS: Fluticasone/Vilanterol [Breo Ellipta] 100-25 Mcg Inhaler INH SCH (09:24)
[2018-09-20] MEDS: DOCUSATE SODIUM 100 MG CAPSULE PO SCH ×2 (09:42→20:18)
--- NOTE | 2018-09-20 09:56 | Internal Med Progress Note ---
Medical - PN: Subj Patient information: Note initiated : 09/20/18 at 9:53 am Service Date, if different from initiated Date: [] Patient: Mihaela Drake a 88 y/o F admitted on 09/18/18 for Shortness of breath. Chief Complaint: [] Interval history: Ms. Drake is a 88 year old F resident of [facility] who presents to the ER with 3-day onset of worsening shortness of breath. Patient has been at baseline state of health however over the last 48 hours has dramatically declined with increasing shortness of breath and decreasing mobility and functionality. Patient has not been able to perform activities of daily living. She was subsequently evaluated at the ER. Initial work-up was consistent with CHF exacerbation on imaging along with white count over 20,000. Patient was started on antibiotic coverage along with initiation of diuresis. However exact source of infection could not be identified. Echocardiogram from April 2018 shows preserved EF. Hospitalist service was consulted for admission in light of above. At the time of evaluation patient is alert oriented. She is feeling better. Able to answer most of the question and endorsed to history as above. She denies recent changes in medication. She denies productive sputum, shaking chills, chest pain or unilateral weakness. She further denies diarrhea dysuria joint pain but endorses to frequent bruising. She denies high salt diet. She denies choking episodes. 09/19-patient doing well. Diuresed well overnight. Improved shortness of breath. Able to talk in full sentences. Blood cultures positive for gram- positive cocci. Vancomycin initiated. Unclear source. However white count down from 20,400-16.3. Afebrile. UA shows significant pyuria. Await cultures. Continue antibiotic coverage. 09/20-patient clinically much improved however persistent leukocytosis at 18.8. On antibiotic coverage. Lymphocyte predominance. Prior history of leukemia. Stable hemodynamics. Transfer to medical floor. Anticipate discharge in 24 to 48 hours. Renal function stable with creatinine at 2.1 baseline. Urine culture gram-negative bacillus. Await culture sensitivities. - Constitutional Vitals: Vital Signs Temp Pulse Resp BP Pulse Ox 97.8 F 76 16 118/57 98 09/20/18 07:38 09/20/18 08:56 09/20/18 08:56 09/20/18 07:38 09/20/18 08:56 Period Temp Pulse Resp BP Sys/Dejesus Pulse Ox Last 24 Hr 96.2 F-98.3 F 67-83 16-20 118-145/52-58 94-99 Intake and Output 09/19/18 09/20/18 09/20/18 21:59 05:59 13:59 Intake Total 50 100 170 Output Total 2100 1225 Balance -2049 170 Weight 130 lb 8 oz Intake & Output: Intake & Output 09/19/18 09/20/18 09/20/18 21:59 05:59 13:59 Intake Total 50 100 170 Output Total 2100 1225 Balance -2049 170 Weight 130 lb 8 oz Intake: IV 50 50 50 Zosyn 2.25 gm In Dextrose 5% in 50 50 50 Water 50 ml @ 100 mls/hr IV Q6H [facility] Rx#:[id number] Oral 50 120 Output: Urine Catheter Amount 2099 1225 Other: Urine Appearance Cloudy Cloudy Clear Uretheral (Gomez) Cloudy Urine Color Straw Straw Bright Yellow Uretheral (Gomez) Straw Urine Odor Strong Normal Stool Size Moderate Stool Color Black Stool Consistency Liquid # Bowel Movements 3 # of times incontinent of 1 Bowels General appearance: no acute distress Exam: Sitting on chair nonlabored breathing No telemetry events No anxiety Improving lymphedema Improved shortness of breath Medical - PN: Obj Da - Labs CBC & Chem 7: 09/20/18 03:30 09/20/18 03:30 Labs: Abnormal Lab Results 09/20/18 09/20/18 09/19/18 03:30 03:30 08:55 WBC 18.8 H RBC 3.43 L Hgb 9.2 L Hct 28.8 L RDW 19.1 H Gran % Lymph % (Auto) Lymph # (Auto) Seg Neutrophils % 32 L Lymphocytes % 56 H WBC Morphology Abnorm A Hypersegmented Polys Reactive Lymphocytes 5 H Smudge Cells 1+ A RBC Morphology Abnorm A Polychromasia 1+ A Hypochromasia 1+ A Anisocytosis 1+ A RBC Fragments Rare A ESR Anion Gap 18.0 H BUN 38 H Creatinine 2.1 H Glucose Uric Acid 9.3 H Calcium 8.2 L Phosphorus 5.1 H Lactate Dehydrogenase 287 H C-Reactive Protein NT-Pro-B Natriuret Pep Total Protein Albumin Urine Occult Blood 0.03 A Ur Leukocyte Esterase 500 A Urine RBC 8 H Urine WBC > 182 H Urine Bacteria Few A 09/19/18 09/19/18 09/18/18 03:45 03:45 09:51 WBC 16.3 H RBC 3.03 L Hgb 8.3 L Hct 25.9 L RDW 19.5 H Gran % Lymph % (Auto) Lymph # (Auto) Seg Neutrophils % 24 L Lymphocytes % 65 H WBC Morphology Abnorm A Hypersegmented Polys Rare A Reactive Lymphocytes 4 H Smudge Cells RBC Morphology Abnorm A Polychromasia Few A Hypochromasia 1+ A Anisocytosis 1+ A RBC Fragments ESR 22 H Anion Gap BUN 39 H Creatinine 2.1 H Glucose Uric Acid 9.5 H Calcium 8.0 L Phosphorus 5.4 H Lactate Dehydrogenase C-Reactive Protein 2.3 H NT-Pro-B Natriuret Pep 3731.0 H Total Protein 5.4 L Albumin 3.1 L Urine Occult Blood Ur Leukocyte Esterase Urine RBC Urine WBC Urine Bacteria 09/18/18 09/18/18 09:51 09:51 WBC 20.4 H RBC 3.50 L Hgb 9.3 L Hct 29.5 L RDW 18.8 H Gran % 26.2 L Lymph % (Auto) 69.3 H Lymph # (Auto) 14.1 H Seg Neutrophils % Lymphocytes % WBC Morphology Hypersegmented Polys Reactive Lymphocytes Smudge Cells RBC Morphology Polychromasia Hypochromasia Anisocytosis RBC Fragments ESR Anion Gap BUN 41 H Creatinine 2.1 H Glucose 110 H Uric Acid Calcium Phosphorus Lactate Dehydrogenase C-Reactive Protein NT-Pro-B Natriuret Pep Total Protein Albumin Urine Occult Blood Ur Leukocyte Esterase Urine RBC Urine WBC Urine Bacteria Meds: Medications Acetaminophen (Tylenol) 650 mg PO Q4-6HP PRN PRN Reason: PAIN/FEVER > 101 Albuterol/Ipratropium (Duoneb) 3 ml NEB Q4HRT [facility] Last Admin: 09/20/18 08:55 Dose: 3 ml Documented by: Amlodipine Besylate (Norvasc) 10 mg PO DAILY [facility] Last Admin: 09/20/18 09:01 Dose: 10 mg Documented by: Aspirin (Ecotrin) 325 mg PO DAILY [facility] Last Admin: 09/20/18 09:00 Dose: 325 mg Documented by: Budesonide (Pulmicort) 0.5 mg NEB Q12 [facility] Last Admin: 09/20/18 08:55 Dose: 0.5 mg Documented by: Carvedilol (Coreg) 6.25 mg PO BIDCC [facility] Last Admin: 09/20/18 09:00 Dose: 6.25 mg Documented by: Citalopram Hydrobromide (Celexa) 20 mg PO QDAY [facility] Last Admin: 09/20/18 09:01 Dose: 20 mg Documented by: Docusate Sodium (Colace) 100 mg PO BID [facility] Last Admin: 09/20/18 09:42 Dose: Not Given Documented by: Donepezil HCl (Aricept) 10 mg PO DAILY [facility] Last Admin: 09/20/18 09:24 Dose: 10 mg Documented by: Folic Acid (Folic Acid) 1 mg PO DAILY [facility] Last Admin: 09/20/18 09:00 Dose: 1 mg Documented by: Furosemide (Lasix) 40 mg IV BIDD [facility] Last Admin: 09/20/18 09:00 Dose: 40 mg Documented by: Heparin Sodium (Porcine) (Heparin) 5,000 unit SQ Q12 [facility] Last Admin: 09/20/18 09:01 Dose: 5,000 unit Documented by: Potassium Chloride 40 meq/ (Dextrose) 520 mls @ 130 mls/hr IV UD PRN PRN Reason: K+ = or < 3.5 Magnesium Sulfate (Magnesium Sulfate) 2 gm in 50 mls @ 50 mls/hr IV UD PRN PRN Reason: MG = or < 1.7 Acetaminophen (Ofirmev) 1,000 mg in 100 mls @ 200 mls/hr IV Q6HP PRN PRN Reason: PAIN/FEVER > 101 Piperacillin Sod/Tazobactam (Sod 2.25 gm/ Dextrose) 50 mls @ 100 mls/hr IV Q6H [facility]; Protocol Last Infusion: 09/20/18 06:30 Dose: Infused Documented by: Iron Carb/Multivit/[place]/Folic Acid (Multivitamin W/Minerals) 1 tab PO DAILY [facility] Last Admin: 09/20/18 09:24 Dose: 1 tab Documented by: [facility]othyroxine [facility] ([facility]roid) [facility] Last Admin: 09/20/18 07:22 Dose: 112 mcg Documented by: Levothyroxine Sodium (Synthroid) 25 mcg PO QAMAC [facility] Last Admin: 09/20/18 07:22 Dose: 25 mcg Documented by: Melatonin (Melatonin 3mg Tablet) 3 mg PO HSP PRN PRN Reason: Insomnia Last Admin: 09/18/18 21:03 Dose: 3 mg Documented by: Memantine (Namenda) 10 mg PO BID [facility] Last Admin: 09/20/18 09:24 Dose: 10 mg Documented by: Ondansetron HCl (Zofran) 4 mg IV Q4-6HP PRN PRN Reason: Nausea And Vomiting Fluticasone/Vilanterol [Breo Ellipta] 100-25 Mcg Inhaler 1 dose INH QDAY [facility] Last Admin: 09/20/18 09:24 Dose: Not Given Documented by: Senna/Docusate Sodium (Senna Plus Tablet) 1 tab PO [facility] Last Admin: 09/19/18 21:04 Dose: Not Given Documented by: Sodium Chloride (Saline Flush) 10 ml IV Q8 [facility] Last Admin: 09/20/18 09:25 Dose: 10 ml Documented by: Tamsulosin HCl (Flomax) 0.4 mg PO [facility] Last Admin: 09/19/18 21:03 Dose: 0.4 mg Documented by: Thiamine HCl (Vitamin B1) 100 mg PO DAILY [facility] Last Admin: 09/20/18 09:24 Dose: 100 mg Documented by: Trazodone HCl (Desyrel) 50 mg PO [facility] PRN PRN Reason: Insomnia Vancomycin HCl (Vancomycin Per Pharmacy) 1 order IV [facility]; Protocol Vitamin D (Vitamin D3) 1,000 unit PO DAILY [facility] Last Admin: 09/20/18 09:24 Dose: 1,000 unit Documented by: Medical - PN: A/P - Time Spent With Patient Total time spent is greater than 50% in coordination of care (as documented) at patient's floor/unit and/or counseling patient: 25 - 35 minutes (1) Congestive heart failure Status: Acute Assessment and plan: * Acute decompensate heart failure diastolic with preserved ejection fraction - Echo April 2018 61% EF. Clinically improving, continue diuresis/supplemental oxygen/low-salt diet and medication optimization. * Sepsis-clinically improving however persistent white count elevation at 18(lymphocyte predominance). Patient carries history of leukemia. * Complicated GNR UTI -on antibiotics. Await sensitivities. * Dyspnea with hypoxia secondary to above. Clinical improvement noted with aggressive diuresis. Continue supplemental oxygen/pulmonary toilet/bronchodilators * History of dementia continue donepezil/memantine * Anxiety disorder continue citalopram * Hypothyroidism continue thyroxine * History of COPD continue bronchodilators/steroids * Hypertension continue amlodipine/Coreg * DNR * Prophylaxis heparin Plan * Deescalate based on Cx * Supplemental oxygen/pulmonary toilet * PT OT nutrition support * Continue diuresis * Prior med conditions Mx on home meds * Discharge planning per case management Current Visit: Yes Medical - PN: Qual - Stroke Symptom Onset Unknown: No - VTE Deep Vein Thrombosis/Pulmonary Embolism Present on Admission: No
[2018-09-20] MEDS ORDERED: MAGNESIUM SULFATE 2 GM/50 ML BAG IV PRN (11:09)
[2018-09-20] MEDS ORDERED: VANCOMYCIN PER PHARMACY IV SCH (11:09)
[2018-09-20] MEDS ORDERED: POTASSIUM CHLORIDE 40 MEQ in DEXTROSE 5% IN WATER 500 ML IV PRN (11:09)
[2018-09-20] MEDS ORDERED: traZODone HCL 50 MG TABLET PO PRN (11:09)
[2018-09-20] MEDS ORDERED: ACETAMINOPHEN 325 MG TABLET PO PRN (11:09)
[2018-09-20] MEDS ORDERED: ACETAMINOPHEN 1,000 MG/100 ML BOTTLE IV PRN (11:09)
[2018-09-20] MEDS ORDERED: ONDANSETRON 4 MG/2 ML VIAL IV PRN (11:09)
[2018-09-20] MEDS ORDERED: MELATONIN 3 MG TABLET PO PRN (11:09)
[2018-09-20] MEDS ORDERED: VANCOMYCIN 500 MG in 0.9 % SODIUM CHLORIDE 100 ML IV ONE (13:00)
[2018-09-20] MEDS ORDERED: IPRATROPIUM/ALBUTEROL 3 ML AMPUL.NEB NEB SCH (15:00)
[2018-09-20] MEDS: TAMSULOSIN 0.4 MG CAPSULE PO SCH (20:18)
[2018-09-20] MEDS: SENNOSIDES/DOCUSATE SODIUM 1 TAB TABLET PO SCH (20:18)
[2018-09-21] MEDS: PIPERACILLIN SODIUM/TAZOBACTAM 2.25 GM in DEXTROSE 5% IN WATER 50 ML IV SCH ×2 (00:05→06:14)
[2018-09-21 05:20] LABS: Hematocrit 29.2 % (36.0-48.0); Hemoglobin 9.4 g/dL (12.0-15.0); Mean Cell Volume 85.2 fL (80.0-100.0); Mean Corpuscular HGB Conc 32.3 g/dL (31.0-36.0); Mean Platelet Volume 8.3 fL (7.4-10.4); Platelet Count 180 K/mcL (140-440); RBC 3.43 M/mcL (4.00-5.20); Red Cell Distribution Width 18.3 % (11.5-14.5); WBC 18.8 K/mcL (4.5-11.0)
[2018-09-21 05:38] LABS: ALT/SGPT 8 U/l (0-40); AST/SGOT 9 U/l (0-37); Albumin 3.5 gm/dL (3.2-5.2); Albumin/Globulin Ratio 1.3 (1.0-2.3); Alkaline Phosphatase 68 U/L (39-117); Bilirubin,Direct < 0.2 mg/dL (0.0-0.3); Bilirubin,Total 0.5 mg/dL (0.0-1.0); Blood Urea Nitrogen 40 mg/dl (8-23); Calcium 8.2 mg/dl (8.6-10.4); Carbon Dioxide 29 mmol/L (22-30); Chloride 98 mmol/L (96-108); Globulin 2.6 gm/dL (2.2-3.7); Glomerular Filtration Rate 19; Glucose 84 mg/dL (70-105); Lactate Dehydrogenase 220 U/L (94-250); Triglycerides 70 mg/dl (<150); Uric Acid 8.8 mg/dL (2.5-8.0)
[2018-09-21 05:42] LABS: Vancomycin,Random 13.4 ug/mL
[2018-09-21] MEDS: 0.9 % SODIUM CHLORIDE 10 ML SYRINGE IV SCH ×3 (06:14→20:07)
[2018-09-21] MEDS: LEVOTHYROXINE SODIUM 112 MCG TABLET PO SCH (07:08)
[2018-09-21] MEDS: LEVOTHYROXINE 25 MCG TABLET PO SCH (07:08)
[2018-09-21 08:05] LABS: Anisocytosis 1+ (NONE SEEN); Eosinophils % (Manual) 5 % (0-7); Lymphocytes % 62 % (15-49); Monocytes % (Manual) 8 % (1-12); Platelet Estimate NORMAL (NORMAL); Poikilocytosis FEW (NONE SEEN); Polychromasia 1+ (NONE SEEN); RBC Fragments FEW (NONE SEEN); RBC Morphology ABNORM (NORMAL); Reactive Lymphocytes 4 % (0-2); Segmented Neutrophils % 21 % (38-78); Smudge Cells 1+ (NONE SEEN); Spherocytes FEW (NONE SEEN)
[2018-09-21] MEDS: MEMANTINE 10 MG TABLET PO SCH ×2 (08:11→20:04)
[2018-09-21] MEDS: CITALOPRAM 20 MG TABLET PO SCH (08:11)
[2018-09-21] MEDS: CARVEDILOL 6.25 MG TABLET PO SCH ×2 (08:11→19:03)
[2018-09-21] MEDS: MULTIVIT,THER IRON,CA,FA & MIN 1 TABLET PO SCH (08:11)
[2018-09-21] MEDS: DONEPEZIL 10 MG TABLET PO SCH (08:11)
[2018-09-21] MEDS: amLODIPine 10 MG TABLET PO SCH (08:11)
[2018-09-21] MEDS: ASPIRIN 325 MG ENTERIC COATED TABLET PO SCH (08:11)
[2018-09-21] MEDS: VITAMIN D3 1,000 UNIT TABLET PO SCH (08:11)
[2018-09-21] MEDS: FUROSEMIDE 40 MG/4 ML VIAL IV SCH ×2 (08:12→15:18)
[2018-09-21] MEDS: THIAMINE 100 MG TABLET PO SCH (08:12)
[2018-09-21] MEDS: FOLIC ACID 1 MG TABLET PO SCH (08:12)
[2018-09-21] MEDS: DOCUSATE SODIUM 100 MG CAPSULE PO SCH ×2 (08:12→20:05)
[2018-09-21] MEDS: Fluticasone/Vilanterol [Breo Ellipta] 100-25 Mcg Inhaler INH SCH (08:12)
[2018-09-21] MEDS: HEPARIN 5,000 UNIT/ML VIAL SQ SCH ×2 (08:12→20:04)
[2018-09-21] MEDS: IPRATROPIUM/ALBUTEROL 3 ML AMPUL.NEB NEB SCH ×2 (08:47→20:24)
[2018-09-21] MEDS ORDERED: VANCOMYCIN 500 MG in 0.9 % SODIUM CHLORIDE 100 ML IV ONE (10:00)
[2018-09-21] MEDS: BUDESONIDE 0.5 MG/2 ML AMPUL.NEB NEB SCH ×2 (10:50→20:24)
--- NOTE | 2018-09-21 13:36 | Internal Med Progress Note ---
Medical - PN: Subj Patient information: Note initiated : 09/21/18 at 1:34 pm Service Date, if different from initiated Date: [] Patient: Mihaela Drake a 88 y/o F admitted on 09/18/18 for Shortness of breath. Chief Complaint: [] Interval history: Ms. Drake is a 88 year old F resident of [facility] assisted living who presents to the ER with 3-day onset of worsening shortness of breath. Patient has been at baseline state of health however over the last 48 hours has dramatically declined with increasing shortness of breath and decreasing mobility and functionality. Patient has not been able to perform activities of daily living. She was subsequently evaluated at the ER. Initial work-up was consistent with CHF exacerbation on imaging along with white count over 20,000. Patient was started on antibiotic coverage along with initiation of diuresis. However exact source of infection could not be identified. Echocardiogram from April 2018 shows preserved EF. Hospitalist service was consulted for admission in light of above. At the time of evaluation patient is alert oriented. She is feeling better. Able to answer most of the question and endorsed to history as above. She denies recent changes in medication. She denies productive sputum, shaking chills, chest pain or unilateral weakness. She further denies diarrhea dysuria joint pain but endorses to frequent bruising. She denies high salt diet. She denies choking episodes. 09/19-patient doing well. Diuresed well overnight. Improved shortness of breath. Able to talk in full sentences. Blood cultures positive for gram- positive cocci. Vancomycin initiated. Unclear source. However white count down from 20,400-16.3. Afebrile. UA shows significant pyuria. Await cultures. Continue antibiotic coverage. 09/20-patient clinically much improved however persistent leukocytosis at 18.8. On antibiotic coverage. Lymphocyte predominance. Prior history of leukemia. Stable hemodynamics. Transfer to medical floor. Anticipate discharge in 24 to 48 hours. Renal function stable with creatinine at 2.1 baseline. Urine culture gram-negative bacillus. Await culture sensitivities. 09/21 Patient seen and examined, no acute overnight events. The patient's blood culture bottle is growing gram-positive cocci, repeat cultures ordered, infectious disease has been consulted. Urine cultures growing gram-negative bacillus Patient otherwise is doing well has no complaints or concerns. Pertinent ROS: Denies headache, dizziness Denies chest pain, palpitations Denies cough or shortness of breath Denies abdominal pain, nausea or vomiting. - Constitutional Vitals: Vital Signs Temp Pulse Resp BP Pulse Ox 98.5 F 78 18 138/61 99 09/21/18 07:38 09/21/18 07:38 09/21/18 08:41 09/21/18 07:38 09/21/18 08:41 Period Temp Pulse Resp BP Sys/Dejesus Pulse Ox Last 24 Hr 97.4 F-98.6 F 69-82 18-20 128-138/59-65 91-99 Intake and Output 09/20/18 09/21/18 09/21/18 21:59 05:59 13:59 Intake Total 50 50 530 Output Total 1600 700 Balance -1550 -650 530 Weight 130 lb 8 oz Intake & Output: Intake & Output 09/20/18 09/21/18 09/21/18 21:59 05:59 13:59 Intake Total 50 50 530 Output Total 1600 700 Balance -1550 -650 530 Weight 130 lb 8 oz Intake: IV 50 50 50 Zosyn 2.25 gm In Dextrose 5% in 50 50 50 Water 50 ml @ 100 mls/hr IV Q6H [facility] Rx#:[id number] Oral 480 Output: Urine Catheter Amount 1600 700 Other: Meal Lunch Percent of Meal Consumed 75% Feeding Ability Independent Urine Appearance Clear Clear Uretheral (Gomez) Clear Urine Color Pale Pale Bright Yellow Bright Yellow Uretheral (Gomez) Bright Yellow Urine Odor Normal Uretheral (Gomez) Normal Stool Size Small Moderate Stool Color Brown Brown Black Stool Consistency Loose Liquid Loose # Bowel Movements 1 1 # of times incontinent of 0 Bowels Exam: Constitutional; Afebrile, cooperative, alert, not in distress. Respiratory system: Air Entry equal on both sides, No crackles or wheezing, no rhonchi. CVS- Rate rhythm regular, S1,S2 heard, no gallop, no rub. Abdomen- Soft nontender abdomen, no organomegaly, no tenderness, no guarding or rigidity, [employer]- AOOx3, moving all extremities, no gross focal deficit noted. Medical - PN: Obj Da - Labs CBC & Chem 7: 09/21/18 04:00 09/21/18 04:00 Labs: Abnormal Lab Results 09/21/18 09/21/18 09/20/18 04:00 04:00 03:30 WBC 18.8 H RBC 3.43 L Hgb 9.4 L Hct 29.2 L RDW 18.3 H Seg Neutrophils % 21 L Lymphocytes % 62 H WBC Morphology Abnorm A Hypersegmented Polys Reactive Lymphocytes 4 H Smudge Cells 1+ A RBC Morphology Abnorm A Polychromasia 1+ A Hypochromasia Poikilocytosis Few A Anisocytosis 1+ A Spherocytes Few A RBC Fragments Few A ESR Potassium 3.2 L Anion Gap 18.0 H BUN 40 H 38 H Creatinine 2.2 H 2.1 H Uric Acid 8.8 H 9.3 H Calcium 8.2 L 8.2 L Phosphorus 5.0 H 5.1 H Lactate Dehydrogenase 287 H C-Reactive Protein Total Protein Albumin Urine Occult Blood Ur Leukocyte Esterase Urine RBC Urine WBC Urine Bacteria 09/20/18 09/19/18 09/19/18 03:30 08:55 03:45 WBC 18.8 H RBC 3.43 L Hgb 9.2 L Hct 28.8 L RDW 19.1 H Seg Neutrophils % 32 L Lymphocytes % 56 H WBC Morphology Abnorm A Hypersegmented Polys Reactive Lymphocytes 5 H Smudge Cells 1+ A RBC Morphology Abnorm A Polychromasia 1+ A Hypochromasia 1+ A Poikilocytosis Anisocytosis 1+ A Spherocytes RBC Fragments Rare A ESR Potassium Anion Gap BUN 39 H Creatinine 2.1 H Uric Acid 9.5 H Calcium 8.0 L Phosphorus 5.4 H Lactate Dehydrogenase C-Reactive Protein 2.3 H Total Protein 5.4 L Albumin 3.1 L Urine Occult Blood 0.03 A Ur Leukocyte Esterase 500 A Urine RBC 8 H Urine WBC > 182 H Urine Bacteria Few A 09/19/18 03:45 WBC 16.3 H RBC 3.03 L Hgb 8.3 L Hct 25.9 L RDW 19.5 H Seg Neutrophils % 24 L Lymphocytes % 65 H WBC Morphology Abnorm A Hypersegmented Polys Rare A Reactive Lymphocytes 4 H Smudge Cells RBC Morphology Abnorm A Polychromasia Few A Hypochromasia 1+ A Poikilocytosis Anisocytosis 1+ A Spherocytes RBC Fragments ESR 22 H Potassium Anion Gap BUN Creatinine Uric Acid Calcium Phosphorus Lactate Dehydrogenase C-Reactive Protein Total Protein Albumin Urine Occult Blood Ur Leukocyte Esterase Urine RBC Urine WBC Urine Bacteria Meds: Medications Acetaminophen (Tylenol) 650 mg PO Q4-6HP PRN PRN Reason: PAIN/FEVER > 101 Albuterol/Ipratropium (Duoneb) 3 ml NEB Q12 [facility] Last Admin: 09/21/18 08:47 Dose: 3 ml Documented by: Amlodipine Besylate (Norvasc) 10 mg PO DAILY [facility] Last Admin: 09/21/18 08:11 Dose: 10 mg Documented by: Aspirin (Ecotrin) 325 mg PO DAILY [facility] Last Admin: 09/21/18 08:11 Dose: 325 mg Documented by: Budesonide (Pulmicort) 0.5 mg NEB Q12 [facility] Last Admin: 09/21/18 10:50 Dose: Not Given Documented by: Carvedilol (Coreg) 6.25 mg PO BIDCC [facility] Last Admin: 09/21/18 08:11 Dose: 6.25 mg Documented by: Citalopram Hydrobromide (Celexa) 20 mg PO QDAY [facility] Last Admin: 09/21/18 08:11 Dose: 20 mg Documented by: Docusate Sodium (Colace) 100 mg PO BID [facility] Last Admin: 09/21/18 08:12 Dose: Not Given Documented by: Donepezil HCl (Aricept) 10 mg PO DAILY [facility] Last Admin: 09/21/18 08:11 Dose: 10 mg Documented by: Folic Acid (Folic Acid) 1 mg PO DAILY [facility] Last Admin: 09/21/18 08:12 Dose: 1 mg Documented by: Furosemide (Lasix) 40 mg IV BIDD [facility] Last Admin: 09/21/18 08:12 Dose: 40 mg Documented by: Heparin Sodium (Porcine) (Heparin) 5,000 unit SQ Q12 [facility] Last Admin: 09/21/18 08:12 Dose: 5,000 unit Documented by: Potassium Chloride 40 meq/ (Dextrose) 520 mls @ 130 mls/hr IV UD PRN PRN Reason: K+ = or < 3.5 Magnesium Sulfate (Magnesium Sulfate) 2 gm in 50 mls @ 50 mls/hr IV UD PRN PRN Reason: MG = or < 1.7 Acetaminophen (Ofirmev) 1,000 mg in 100 mls @ 200 mls/hr IV Q6HP PRN PRN Reason: PAIN/FEVER > 101 Iron Carb/Multivit/[place]/Folic Acid (Multivitamin W/Minerals) 1 tab PO DAILY [facility] Last Admin: 09/21/18 08:11 Dose: 1 tab Documented by: Levothyroxine Sodium (Synthroid) 25 mcg PO QAMAC [facility] Last Admin: 09/21/18 07:08 Dose: 25 mcg Documented by: Levothyroxine Sodium (Synthroid) 112 mcg PO QAMAC [facility] Last Admin: 09/21/18 07:08 Dose: 112 mcg Documented by: Melatonin (Melatonin 3mg Tablet) 3 mg PO HSP PRN PRN Reason: Insomnia Memantine (Namenda) 10 mg PO BID [facility] Last Admin: 09/21/18 08:11 Dose: 10 mg Documented by: Ondansetron HCl (Zofran) 4 mg IV Q4-6HP PRN PRN Reason: Nausea And Vomiting Fluticasone/Vilanterol [Breo Ellipta] 100-25 Mcg Inhaler 1 dose INH QDAY [facility] Last Admin: 09/21/18 08:12 Dose: Not Given Documented by: Senna/Docusate Sodium (Senna Plus Tablet) 1 tab PO [facility] Last Admin: 09/20/18 20:18 Dose: 1 tab Documented by: Sodium Chloride (Saline Flush) 10 ml IV Q8 [facility] Last Admin: 09/21/18 06:14 Dose: 10 ml Documented by: Tamsulosin HCl (Flomax) 0.4 mg PO [facility] Last Admin: 09/20/18 20:18 Dose: 0.4 mg Documented by: Thiamine HCl (Vitamin B1) 100 mg PO DAILY [facility] Last Admin: 09/21/18 08:12 Dose: 100 mg Documented by: Trazodone HCl (Desyrel) 50 mg PO HSP PRN PRN Reason: Insomnia Vancomycin HCl (Vancomycin Per Pharmacy) 1 order [place] [facility] [facility] [place] Protocol Vitamin D (Vitamin D3) 1,000 unit PO DAILY [facility] Last Admin: 09/21/18 08:11 Dose: 1,000 unit Documented by: Medical - PN: A/P - Time Spent With Patient Total time spent is greater than 50% in coordination of care (as documented) at patient's floor/unit and/or counseling patient: - Narrative A/P Narrative: A/P Acute decompensated diastolic heart failure -Continue diuresis clinically improving labs stable, patient is -3361 mL since admission Gram-negative urinary tract infection -On IV antibiotics this morning to treatment Gram-positive bacteremia -Source unknown, multiple bacteria noted according to initial isolation. Infectious disease has been consulted, patient is on IV vancomycin Shortness of breath -Due to above treat the underlying condition Acute hypoxic respiratory failure -Presently on 1 L of oxygen improved since admission Chronic obstructive pulmonary disease -No wheezing noted continue bronchodilators steroids Dementia -Stable no behavioral issues continue memantine and Aricept Anxiety disorder -Stable on citalopram Hypothyroidism -Stable on levothyroxine Medical - PN: Qual - Stroke Symptom Onset Unknown: No - VTE Deep Vein Thrombosis/Pulmonary Embolism Present on Admission: No
--- NOTE | 2018-09-21 17:35 | Infectious Disease Consult ---
History of Present Illness Patient information: Note initiated : 09/21/18 at 5:25 pm Service Date, if different from initiated Date: [] Patient: Mihaela Drake 88 y/o F admitted on 09/18/18 for Shortness of breath. Chief Complaint: [] Consult date: 09/21/18 Requesting Physician: Prasanna Luther Reason for Consult: GPC bacteremia Chief complaint: I felt short of breath and weak History of present illness: HPI obtained from chart review and pat (not a good historian) 88 year old lady, who lives at [facility] was brought to [facility] with c/o 3-day onset of shortness of breath which was becoming worse. The SOB started acutely and worsened to point of needing supplemental O2. She was [facility] but sent to ED as her O2 sats were 80% on RA. Pt also reported fatigue and unable to carry out her ADLs. She denied any fevers, chills, productive cough, chest pain. She denied any n/v, diarrhea, burning while urination, increased freq or urgency. She denied any joint pains or swellings. In the ED: initial work-up showed white count over 20,000, high BNP of 3700, CXR concerning for heart failure and b/l small pleural effusions. She was started on IV vanc and IV Zosyn, along with diuresis. Blood Cx and urine Cx were sent. Blood Cx on 09/20 resulted for GPC but without any species level identification on PCR testing. Pt has been feeling much better during her hospital course, although still on supplemental O2. She didnot have any fever, n/v, diarrhea. Review of Systems All systems PM: reviewed and no additional remarkable complaints except as stated Past History Past family history: No sick contacts at the assisted living Rest of family history not pertinent to current presentation Past social history: Does not smoke, drink alcohol or inject any illicit drugs Medications and Allergies Home Medications Medication Instructions Recorded Confirmed Type levothyroxine 137 mcg tablet 137 mcg PO QDAY tab 09/03/14 09/18/18 History carboxymethylcellulose sodium 0.5 1 drp OPHTHALMIC QDAY PRN ml 12/10/17 09/18/18 History % eye drops cholecalciferol (vitamin D3) 1,000 1,000 unit PO QDAY 12/10/17 09/18/18 History unit capsule memantine 5 mg tablet 10 mg PO BID tab 12/10/17 09/18/18 History citalopram 20 mg tablet 20 mg PO QDAY #7 tab 12/26/17 09/18/18 Rx carvedilol 6.25 mg tablet 6.25 mg PO BID 30 Days #60 tab 07/13/18 09/18/18 Rx fluticasone furoate 100 1 inh INHALATION QDAY #28 each 07/30/18 09/18/18 Rx mcg-vilanterol 25 mcg/dose inhalation powder amlodipine 5 mg tablet 10 mg PO QDAY #60 tab 08/04/18 09/18/18 Rx capsaicin 0.1 % topical cream 1 applic TOPICAL BID PRN 08/04/18 09/18/18 History Acetaminophen [Pain Reliever] 500 mg PO Q8 PRN 09/18/18 09/18/18 History Acetaminophen/Chlorpheniramine 2 each PO Q6 09/18/18 09/18/18 History [Coricidin Hbp Cold & Flu Tab] Aspirin [Lite Coat Aspirin] 325 mg PO DAILY 09/18/18 09/18/18 History Donepezil [Aricept] 10 mg PO DAILY 09/18/18 09/18/18 History Menthol [Cough Drops] 5 mg MM PRN PRN 09/18/18 09/18/18 History Tamsulosin [Flomax] 0.4 mg PO ONCE 09/18/18 09/18/18 History HYDROcodone/APAP 5/325MG [[place] 1 tab PO Q6HP PRN #20 tab 09/19/18 Rx 5-325Mg] Allergies Allergy/AdvReac Type Severity Reaction Status Date / Time ciprofloxacin Allergy Unknown Unknown Verified 09/18/18 09:40 Sulfa (Sulfonamide Allergy Unknown Unknown Verified 09/18/18 09:40 Antibiotics) Physical Examination Vital signs: Temp Pulse Resp BP Pulse Ox 36.7 C 80 18 121/48 97 09/21/18 12:00 09/21/18 12:00 09/21/18 12:00 09/21/18 12:00 09/21/18 12:00 General appearance: no acute distress Eyes pulmonary: nonicteric ENT: oropharynx moist Auscultation: bilateral: clear (Decreased breath sounds at bases) Cardiovascular: other (S1-S2 normal, no murmurs auscultated) Gastrointestinal: normoactive bowel sounds, soft, non-tender Results - Laboratory Findings CBC and BMP: 09/22/18 03:56 09/22/18 03:56 Abnormal lab findings: Abnormal Labs 09/18/18 09/18/18 09/18/18 09:51 09:51 09:51 WBC 20.4 H RBC 3.50 L Hgb 9.3 L Hct 29.5 L RDW 18.8 H Gran % 26.2 L Lymph % (Auto) 69.3 H Lymph # (Auto) 14.1 H Seg Neutrophils % Lymphocytes % WBC Morphology Hypersegmented Polys Reactive Lymphocytes Smudge Cells RBC Morphology Polychromasia Hypochromasia Poikilocytosis Anisocytosis Spherocytes RBC Fragments ESR Potassium Anion Gap BUN 41 H Creatinine 2.1 H Glucose 110 H Uric Acid Calcium Phosphorus Lactate Dehydrogenase C-Reactive Protein NT-Pro-B Natriuret Pep 3731.0 H Total Protein Albumin Urine Occult Blood Ur Leukocyte Esterase Urine RBC Urine WBC Urine Bacteria 09/19/18 09/19/18 09/19/18 03:45 03:45 08:55 WBC 16.3 H RBC 3.03 L Hgb 8.3 L Hct 25.9 L RDW 19.5 H Gran % Lymph % (Auto) Lymph # (Auto) Seg Neutrophils % 24 L Lymphocytes % 65 H WBC Morphology Abnorm A Hypersegmented Polys Rare A Reactive Lymphocytes 4 H Smudge Cells RBC Morphology Abnorm A Polychromasia Few A Hypochromasia 1+ A Poikilocytosis Anisocytosis 1+ A Spherocytes RBC Fragments ESR 22 H Potassium Anion Gap BUN 39 H Creatinine 2.1 H Glucose Uric Acid 9.5 H Calcium 8.0 L Phosphorus 5.4 H Lactate Dehydrogenase C-Reactive Protein 2.3 H NT-Pro-B Natriuret Pep Total Protein 5.4 L Albumin 3.1 L Urine Occult Blood 0.03 A Ur Leukocyte Esterase 500 A Urine RBC 8 H Urine WBC > 182 H Urine Bacteria Few A 09/20/18 09/20/18 09/21/18 03:30 03:30 04:00 WBC 18.8 H 18.8 H RBC 3.43 L 3.43 L Hgb 9.2 L 9.4 L Hct 28.8 L 29.2 L RDW 19.1 H 18.3 H Gran % Lymph % (Auto) Lymph # (Auto) Seg Neutrophils % 32 L 21 L Lymphocytes % 56 H 62 H WBC Morphology Abnorm A Abnorm A Hypersegmented Polys Reactive Lymphocytes 5 H 4 H Smudge Cells 1+ A 1+ A RBC Morphology Abnorm A Abnorm A Polychromasia 1+ A 1+ A Hypochromasia 1+ A Poikilocytosis Few A Anisocytosis 1+ A 1+ A Spherocytes Few A RBC Fragments Rare A Few A ESR Potassium Anion Gap 18.0 H BUN 38 H Creatinine 2.1 H Glucose Uric Acid 9.3 H Calcium 8.2 L Phosphorus 5.1 H Lactate Dehydrogenase 287 H C-Reactive Protein NT-Pro-B Natriuret Pep Total Protein Albumin Urine Occult Blood Ur Leukocyte Esterase Urine RBC Urine WBC Urine Bacteria 09/21/18 04:00 WBC RBC Hgb Hct RDW Gran % Lymph % (Auto) Lymph # (Auto) Seg Neutrophils % Lymphocytes % WBC Morphology Hypersegmented Polys Reactive Lymphocytes Smudge Cells RBC Morphology Polychromasia Hypochromasia Poikilocytosis Anisocytosis Spherocytes RBC Fragments ESR Potassium 3.2 L Anion Gap BUN 40 H Creatinine 2.2 H Glucose Uric Acid 8.8 H Calcium 8.2 L Phosphorus 5.0 H Lactate Dehydrogenase C-Reactive Protein NT-Pro-B Natriuret Pep Total Protein Albumin Urine Occult Blood Ur Leukocyte Esterase Urine RBC Urine WBC Urine Bacteria Microbiology: Microbiology 09/19/18 08:55 Urine - Clean Void Mid-Stream Urine Culture - Final Escherichia coli 09/18/18 11:25 Blood Blood Culture - Preliminary 09/19/18 09:13 Blood Blood Culture - Preliminary 09/19/18 09:00 Blood Blood Culture - Preliminary Gram positive cocci 09/18/18 11:33 Blood Blood Culture - Preliminary Gram positive cocci 09/18/18 14:55 Nose MRSA (PCR) - Final Assessment and Plan - Narrative A/P Narrative: Assessment: 1. Corynebacterium species bacteremia: on 2 consecutive days [09/18/18, 09/19/18] Further identification and sensitivities pending Given presence of corynebacterium [which is normally considered a contaminant] on consecutive blood cultures, will consider to the pathogen. 2 corynebacterium species [C. jeikieum and C striatum] for pathogenic. Possible source of entry is skin given patient's extensive bruising 2. Asymptomatic bacteriuria: Urine cultures growing E. coli with CFU of 50,000 to 60,000/mL 3. CHF exacerbation Recommendations: Stop IV Zosyn. Continue IV vancomycin per pharmacy assisted dosing Await final ID and sensitivities Await TTE report If repeat blood cultures and TTE are negative, will consider a total of 10-day course of antibiotics -Consider taking out the Gomez. Patient agreeable will follow [place]oacano Malin MD Infectious disease
[2018-09-21] MEDS: TAMSULOSIN 0.4 MG CAPSULE PO SCH (20:03)
[2018-09-21] MEDS: SENNOSIDES/DOCUSATE SODIUM 1 TAB TABLET PO SCH (20:04)
[2018-09-22 05:29] LABS: Hematocrit 30.4 % (36.0-48.0); Hemoglobin 9.7 g/dL (12.0-15.0); Mean Cell Volume 84.8 fL (80.0-100.0); Mean Platelet Volume 8.3 fL (7.4-10.4); Platelet Count 175 K/mcL (140-440); RBC 3.58 M/mcL (4.00-5.20); Red Cell Distribution Width 18.6 % (11.5-14.5); WBC 19.1 K/mcL (4.5-11.0)
[2018-09-22] MEDS: 0.9 % SODIUM CHLORIDE 10 ML SYRINGE IV SCH ×5 (05:32→21:02)
[2018-09-22 05:54] LABS: ALT/SGPT 8 U/l (0-40); AST/SGOT 11 U/l (0-37); Albumin 3.5 gm/dL (3.2-5.2); Albumin/Globulin Ratio 1.2 (1.0-2.3); Alkaline Phosphatase 72 U/L (39-117); Bilirubin,Direct < 0.2 mg/dL (0.0-0.3); Bilirubin,Total 0.4 mg/dL (0.0-1.0); Blood Urea Nitrogen 43 mg/dl (8-23); Calcium 8.5 mg/dl (8.6-10.4); Carbon Dioxide 28 mmol/L (22-30); Chloride 97 mmol/L (96-108); Glomerular Filtration Rate 19; Glucose 84 mg/dL (70-105); Lactate Dehydrogenase 224 U/L (94-250); Triglycerides 76 mg/dl (<150); Uric Acid 9.7 mg/dL (2.5-8.0)
[2018-09-22] MEDS ORDERED: POTASSIUM CHLORIDE 40 MEQ in DEXTROSE 5% IN WATER 500 ML IV ONE (07:34)
[2018-09-22] MEDS: LEVOTHYROXINE SODIUM 112 MCG TABLET PO SCH (07:48)
[2018-09-22] MEDS: LEVOTHYROXINE 25 MCG TABLET PO SCH (07:49)
[2018-09-22] MEDS: FUROSEMIDE 40 MG/4 ML VIAL IV SCH ×2 (07:56→17:00)
[2018-09-22] MEDS: CARVEDILOL 6.25 MG TABLET PO SCH ×2 (07:56→17:40)
[2018-09-22] MEDS: IPRATROPIUM/ALBUTEROL 3 ML AMPUL.NEB NEB SCH ×2 (08:11→20:47)
[2018-09-22 08:29] LABS: Anisocytosis 1+ (NONE SEEN); Eosinophils % (Manual) 2 % (0-7); Lymphocytes % 76 % (15-49); Monocytes % (Manual) 6 % (1-12); Platelet Estimate NORMAL (NORMAL); RBC Morphology ABNORM (NORMAL); Reactive Lymphocytes 1 % (0-2); Segmented Neutrophils % 15 % (38-78); Smudge Cells 1+ (NONE SEEN)
[2018-09-22] MEDS: CITALOPRAM 20 MG TABLET PO SCH (09:00)
[2018-09-22] MEDS: ASPIRIN 325 MG ENTERIC COATED TABLET PO SCH (09:00)
[2018-09-22] MEDS: amLODIPine 10 MG TABLET PO SCH (09:00)
[2018-09-22] MEDS: VITAMIN D3 1,000 UNIT TABLET PO SCH (09:00)
[2018-09-22] MEDS: FOLIC ACID 1 MG TABLET PO SCH (09:00)
[2018-09-22] MEDS: THIAMINE 100 MG TABLET PO SCH (09:00)
[2018-09-22] MEDS: VANCOMYCIN 500 MG in 0.9 % SODIUM CHLORIDE 100 ML IV SCH (10:00)
[2018-09-22] MEDS: HEPARIN 5,000 UNIT/ML VIAL SQ SCH ×2 (10:00→21:01)
--- NOTE | 2018-09-22 10:16 | Internal Med Progress Note ---
Medical - PN: Subj Patient information: Note initiated : 09/22/18 at 10:14 am Service Date, if different from initiated Date: [] Patient: Mihaela Drake a 88 y/o F admitted on 09/18/18 for Shortness of breath. Chief Complaint: [] Interval history: Ms. Drake is a 88 year old F resident of [facility] who presents to the ER with 3-day onset of worsening shortness of breath. Patient has been at baseline state of health however over the last 48 hours has dramatically declined with increasing shortness of breath and decreasing mobility and functionality. Patient has not been able to perform activities of daily living. She was subsequently evaluated at the ER. Initial work-up was consistent with CHF exacerbation on imaging along with white count over 20,000. Patient was started on antibiotic coverage along with initiation of diuresis. However exact source of infection could not be identified. Echocardiogram from April 2018 shows preserved EF. Hospitalist service was consulted for admission in light of above. At the time of evaluation patient is alert oriented. She is feeling better. Able to answer most of the question and endorsed to history as above. She denies recent changes in medication. She denies productive sputum, shaking chills, chest pain or unilateral weakness. She further denies diarrhea dysuria joint pain but endorses to frequent bruising. She denies high salt diet. She denies choking episodes. 09/19-patient doing well. Diuresed well overnight. Improved shortness of breath. Able to talk in full sentences. Blood cultures positive for gram- positive cocci. Vancomycin initiated. Unclear source. However white count down from 20,400-16.3. Afebrile. UA shows significant pyuria. Await cultures. Continue antibiotic coverage. 09/20-patient clinically much improved however persistent leukocytosis at 18.8. On antibiotic coverage. Lymphocyte predominance. Prior history of leukemia. Stable hemodynamics. Transfer to medical floor. Anticipate discharge in 24 to 48 hours. Renal function stable with creatinine at 2.1 baseline. Urine culture gram-negative bacillus. Await culture sensitivities. 09/21 Patient seen and examined, no acute overnight events. The patient's blood culture bottle is growing gram-positive cocci, repeat cultures ordered, infectious disease has been consulted. Urine cultures growing gram-negative bacillus Patient otherwise is doing well has no complaints or concerns. 09/22 Patient seen and examined, sitting comfortably in the chair tolerate p.o. diet fine has no complaints. Afebrile but white count is persistently elevated. Blood cultures growing corynebacterium, urine culture is E. coli infectious disease is following. Given persistence of WBC count we will get a CT chest abdomen and pelvis to rule out any other source. Pertinent ROS: Denies headache, dizziness Denies chest pain, palpitations Denies cough or shortness of breath Denies abdominal pain, nausea or vomiting. - Constitutional Vitals: Vital Signs Temp Pulse Resp BP Pulse Ox 97.8 F 84 16 130/69 92 09/22/18 08:00 09/22/18 08:12 09/22/18 08:12 09/22/18 08:00 09/22/18 08:00 Period Temp Pulse Resp BP Sys/Dejesus Pulse Ox Last 24 Hr 97.8 F-98.4 F 80-96 16-18 121-149/48-69 90-98 Intake and Output 09/21/18 09/22/18 09/22/18 21:59 05:59 13:59 Intake Total 440 400 Output Total 850 1050 Balance -410 -650 Weight 126 lb Intake & Output: Intake & Output 09/21/18 09/22/18 09/22/18 21:59 05:59 13:59 Intake Total 440 400 Output Total 850 1050 Balance -410 -650 Weight 126 lb Intake: Oral 440 400 Output: Urine Catheter Amount 850 1050 Other: Meal Dinner Percent of Meal Consumed 75% Feeding Ability Assist with Tray Set Up Urine Appearance Clear Urine Color Bright Yellow Urine Odor Normal Stool Size Small Stool Color Green Black Stool Consistency Liquid # Bowel Movements 1 Exam: Constitutional; Afebrile, cooperative, alert, not in distress. Respiratory system: Air Entry equal on both sides, No crackles or wheezing, no rhonchi. CVS- Rate rhythm regular, S1,S2 heard, no gallop, no rub. Abdomen- Soft nontender abdomen, no organomegaly, no tenderness, no guarding or rigidity, MICA MINER- AOOx3, moving all extremities, no gross focal deficit noted. Medical - PN: Obj Da - Labs CBC & Chem 7: 09/22/18 03:56 09/22/18 03:56 Labs: Abnormal Lab Results 09/22/18 09/22/18 09/21/18 03:56 03:56 04:00 WBC 19.1 H RBC 3.58 L Hgb 9.7 L Hct 30.4 L RDW 18.6 H Seg Neutrophils % 15 L Lymphocytes % 76 H WBC Morphology Abnorm A Reactive Lymphocytes Smudge Cells 1+ A RBC Morphology Abnorm A Polychromasia Hypochromasia Poikilocytosis Anisocytosis 1+ A Spherocytes RBC Fragments Potassium 3.0 L 3.2 L Anion Gap 17.0 H BUN 43 H 40 H Creatinine 2.2 H 2.2 H Uric Acid 9.7 H 8.8 H Calcium 8.5 L 8.2 L Phosphorus 5.0 H 5.0 H Lactate Dehydrogenase 09/21/18 09/20/18 09/20/18 04:00 03:30 03:30 WBC 18.8 H 18.8 H RBC 3.43 L 3.43 L Hgb 9.4 L 9.2 L Hct 29.2 L 28.8 L RDW 18.3 H 19.1 H Seg Neutrophils % 21 L 32 L Lymphocytes % 62 H 56 H WBC Morphology Abnorm A Abnorm A Reactive Lymphocytes 4 H 5 H Smudge Cells 1+ A 1+ A RBC Morphology Abnorm A Abnorm A Polychromasia 1+ A 1+ A Hypochromasia 1+ A Poikilocytosis Few A Anisocytosis 1+ A 1+ A Spherocytes Few A RBC Fragments Few A Rare A Potassium Anion Gap 18.0 H BUN 38 H Creatinine 2.1 H Uric Acid 9.3 H Calcium 8.2 L Phosphorus 5.1 H Lactate Dehydrogenase 287 H Meds: Medications Acetaminophen (Tylenol) 650 mg PO Q4-6HP PRN PRN Reason: PAIN/FEVER > 101 Albuterol/Ipratropium (Duoneb) 3 ml NEB Q12 [facility] Last Admin: 09/22/18 08:11 Dose: 3 ml Documented by: Amlodipine Besylate (Norvasc) 10 mg PO DAILY [facility] Last Admin: 09/21/18 08:11 Dose: 10 mg Documented by: Aspirin (Ecotrin) 325 mg PO DAILY [facility] Last Admin: 09/21/18 08:11 Dose: 325 mg Documented by: Budesonide (Pulmicort) 0.5 mg NEB Q12 [facility] Last Admin: 09/21/18 20:24 Dose: 0.5 mg Documented by: [facility] Admin: 09/22/18 07:56 Dose: 6.25 mg Documented by: Citalopram Hydrobromide (Celexa) 20 mg PO QDAY [facility] Last Admin: 09/21/18 08:11 Dose: 20 mg Documented by: Docusate Sodium (Colace) 100 mg PO BID [facility] Last Admin: 09/21/18 20:05 Dose: Not Given Documented by: Donepezil HCl (Aricept) 10 mg PO DAILY [facility] Last Admin: 09/21/18 08:11 Dose: 10 mg Documented by: Folic Acid (Folic Acid) 1 mg PO DAILY [facility] Last Admin: 09/21/18 08:12 Dose: 1 mg Documented by: Furosemide (Lasix) 40 mg IV BIDD [facility] Last Admin: 09/22/18 07:56 Dose: 40 mg Documented by: Heparin Sodium (Porcine) (Heparin) 5,000 unit SQ Q12 [facility] Last Admin: 09/21/18 20:04 Dose: 5,000 unit Documented by: Potassium Chloride 40 meq/ (Dextrose) 520 mls @ 130 mls/hr IV UD PRN PRN Reason: K+ = or < 3.5 Magnesium Sulfate (Magnesium Sulfate) 2 gm in 50 mls @ 50 mls/hr IV UD PRN PRN Reason: MG = or < 1.7 Acetaminophen (Ofirmev) 1,000 mg in 100 mls @ 200 mls/hr IV Q6HP PRN PRN Reason: PAIN/FEVER > 101 Potassium Chloride 40 meq/ (Dextrose) 520 mls @ 130 mls/hr IV ONCE ONE Stop: 09/22/18 11:33 Last Admin: 09/22/18 07:49 Dose: 130 mls/hr Documented by: Vancomycin HCl 500 mg/ Sodium (Chloride) 100 mls @ 100 mls/hr IV DAILY [facility] Iron Carb/Multivit/Consultant Intern/Folic Acid (Multivitamin W/Minerals) 1 tab PO DAILY [facility] Last Admin: 09/21/18 08:11 Dose: 1 tab Documented by: Levothyroxine Sodium (Synthroid) 25 mcg PO QAMAC [facility] Last Admin: 09/22/18 07:49 Dose: 25 mcg Documented by: Levothyroxine Sodium (Synthroid) 112 mcg PO QAMAC [facility] Last Admin: 09/22/18 07:48 Dose: 112 mcg Documented by: Melatonin (Melatonin 3mg Tablet) 3 mg PO HSP PRN PRN Reason: Insomnia Memantine (Namenda) 10 mg PO BID [facility] Last Admin: 09/21/18 20:04 Dose: 10 mg Documented by: Ondansetron HCl (Zofran) 4 mg IV Q4-6HP PRN PRN Reason: Nausea And Vomiting Fluticasone/Vilanterol [Breo Ellipta] 100-25 Mcg Inhaler 1 dose INH QDAY [facility] Last Admin: 09/21/18 08:12 Dose: Not Given Documented by: Senna/Docusate Sodium (Senna Plus Tablet) 1 tab PO [facility] Last Admin: 09/21/18 20:04 Dose: Not Given Documented by: Sodium Chloride (Saline Flush) 10 ml IV Q8 [facility] Last Admin: 09/22/18 07:56 Dose: 10 ml Documented by: Tamsulosin HCl (Flomax) 0.4 mg PO [facility] Last Admin: 09/21/18 20:03 Dose: 0.4 mg Documented by: Thiamine HCl (Vitamin B1) 100 mg PO DAILY [facility] Last Admin: 09/21/18 08:12 Dose: 100 mg Documented by: Throat Lozenges (Cepacol) 1 lozenge PO Q2HP PRN PRN Reason: Sore Throat Trazodone HCl (Desyrel) 50 mg PO HSP PRN PRN Reason: Insomnia Vancomycin HCl (Vancomycin Per Pharmacy) 1 order IV [facility] [place]; Protocol Vitamin D (Vitamin D3) 1,000 unit PO DAILY [facility] Last Admin: 09/21/18 08:11 Dose: 1,000 unit Documented by: Medical - PN: A/P - Time Spent With Patient Total time spent is greater than 50% in coordination of care (as documented) at patient's floor/unit and/or counseling patient: - Narrative A/P Narrative: A/P Acute decompensated diastolic heart failure -Continue diuresis clinically improving labs stable, patient is -4421 mL since admission Gram-negative urinary tract infection -ecoli, s/p treatment Gram-positive bacteremia -source skin? corynebactermia -on IV vanco, to continue, ID following Shortness of breath -Due to above treat the underlying condition, much improved Acute hypoxic respiratory failure -resolved -on room air now Chronic obstructive pulmonary disease -No wheezing noted continue bronchodilators steroids Dementia -Stable no behavioral issues continue memantine and Aricept Anxiety disorder -Stable on citalopram Hypothyroidism -Stable on levothyroxine anticipate d/c in AM if remains stable Medical - PN: Qual - Stroke Symptom Onset Unknown: No - VTE Deep Vein Thrombosis/Pulmonary Embolism Present on Admission: No
--- NOTE | 2018-09-22 10:47 | Cat Scan Report ---
CLINICAL INFORMATION: Elevated white blood cell count. COMPARISON: Abdomen and pelvic CT 01/08/2013. TECHNIQUE: 0.625 mm helical slices were obtained from the lung apices through the subtrochanteric regions of the femurs. Following reconstruction, 2.5 mm sagittal, coronal and axial reformatted images were processed and reviewed at multiple windows and levels. 7 mm MIP reconstructions were obtained through the lungs to optimize nodule detection.The exam was performed using radiation dose optimization techniques including, but not limited to, automated exposure control, adjustment of the mA and/or kV according to patient size and use of iterative reconstruction technique. FINDINGS: Pulmonary parenchymal windows show chronic bronchitis featuring elevated lung volumes and wall thickening of the bronchi. A mosaic perfusion pattern is seen throughout both lungs. Moderate consolidated infiltrate in the medial posterior and lateral segments of the left lower lobe with a moderate associated left pleural effusion appreciated. Scattered scarring seen throughout the remainder of both upper, right middle and lower lobes. Mediastinal windows show the heart is mildly enlarged with a small pericardial effusion appreciated. Central pulmonary arteries are moderately enlarged: the main pulmonary diameter of 3.2 cm. This is suggestive of pulmonary hypertension. Thoracic aorta is unremarkable. A few mildly enlarged lower mediastinal lymph nodes present. Tracheal AP windows and precarinal regions ranging up to 15 mm. They're almost certainly benign reactive lymph nodes. The esophagus is normal. Thyroid is diminutive. Images through the abdomen show scattered simple cysts in the liver ranging up to 19 mm in the earle hepatis. The gallbladder and bile ducts are normal: CBD is 5 mm. Solitary right kidney is unremarkable. The spleen, pancreas are normal. Mild ectasia infrarenal abdominal aorta contains scattered atherosclerotic plaque. No free air, free fluid or adenopathy. Pelvic images show Gomez catheter in satisfactory position within the urinary bladder. Hysterectomy/oophorectomy changes noted. Stomach, small and large bowel normal. Appendectomy changes noted. Bone windows show no significant osseous abnormality IMPRESSION: 1. Moderate infiltrate in the medial, posterior and lateral basal segments of the left lower lobe. Moderate left pleural effusion. 2. Chronic bronchitis with moderate mosaic perfusion pattern throughout both lungs. Mosaic perfusion pattern is typically associated with small airway disease such as bronchiolitis obliterans or chronic vascular disease. 3. Enlargement of the central pulmonary arteries compatible with pulmonary hypertension 4. Scattered hepatic cysts. 5. Solitary left kidney. Right kidney unremarkable. 6. Mild ectasia of the abdominal aorta. Suggest follow-up ultrasound in one to two years Interpreted and Authenticated by: Meño Adams 09/22/18
[2018-09-22] MEDS: DOCUSATE SODIUM 100 MG CAPSULE PO SCH ×2 (11:23→21:01)
[2018-09-22] MEDS: Fluticasone/Vilanterol [Breo Ellipta] 100-25 Mcg Inhaler INH SCH (11:24)
[2018-09-22] MEDS: DONEPEZIL 10 MG TABLET PO SCH (12:19)
[2018-09-22] MEDS: MEMANTINE 10 MG TABLET PO SCH ×2 (12:21→21:01)
[2018-09-22] MEDS: MULTIVIT,THER IRON,CA,FA & MIN 1 TABLET PO SCH (12:21)
[2018-09-22] MEDS: BUDESONIDE 0.5 MG/2 ML AMPUL.NEB NEB SCH ×2 (12:22→20:47)
--- NOTE | 2018-09-22 17:40 | Infectious Disease Prog Note ---
Subjective Patient information: Note initiated : 09/22/18 at 5:00 pm Service Date, if different from initiated Date: [] Patient: Mihaela Drake 88 y/o F admitted on 09/18/18 for Shortness of breath. Chief Complaint: [] Interval history: Pt feels much better. Sitting in chair, off O2. No fever, n/v. Endorses loose st ools x 1. Besides that denies any symptoms. Objective Objective Narrative: ao x 3, in nad no thrush extensive bruising over both upper extremities chest cta, with some decreased BS at bases s1 s2 normal, no m/r/g bs + no edema - Vital Signs Vital signs: Vital Signs Temp Pulse Pulse Resp BP BP Pulse Ox 09/22/18 12:00 36.6 C 88 18 129/59 94 09/22/18 08:12 84 16 09/22/18 08:00 36.6 C 96 H 130/69 92 09/22/18 03:51 36.6 C 83 18 142/59 90 09/21/18 23:17 36.7 C 88 16 129/67 94 09/21/18 20:25 84 16 09/21/18 18:42 36.9 C 87 18 148/61 98 Intake and Output 09/22/18 09/22/18 09/22/18 05:59 13:59 21:59 Intake Total 400 740 Output Total 1050 651 100 Balance -650 89 -100 Intake: Oral 400 740 Output: Urine Catheter Amount 1050 650 Void Amount 100 # of times incontinent of urine 1 Other: Meal Lunch Percent of Meal Consumed 75% Urine Appearance Uretheral (Gomez) Clear Urine Color Uretheral (Gomez) Pale Stool Size Moderate Small Stool Color Brown Green Black Stool Consistency Soft # Bowel Movements 1 Intake & Output: Intake & Output 09/22/18 09/22/18 09/22/18 05:59 13:59 21:59 Intake Total 400 740 Output Total 1050 651 100 Balance -650 89 -100 Intake: Oral 400 740 Output: Urine Catheter Amount 1050 650 Void Amount 100 # of times incontinent of urine 1 Other: Meal Lunch Percent of Meal Consumed 75% Urine Appearance Uretheral (Gomez) Clear Urine Color Uretheral (Gomez) Pale Stool Size Moderate Small Stool Color Brown Green Black Stool Consistency Soft # Bowel Movements 1 - Lab 09/22/18 03:56 09/22/18 03:56 Most recent lab results Calcium 8.5 mg/dl (8.6-10.4) L 09/22/18 03:56 Phosphorus 5.0 mg/dL (2.7-4.5) H 09/22/18 03:56 Magnesium 2.2 mg/dL (1.6-2.5) 09/22/18 03:56 Microbiology 09/18/18 11:25 Blood Blood Culture - Preliminary 09/19/18 09:13 Blood Blood Culture - Preliminary 09/21/18 08:46 Blood Blood Culture - Preliminary 09/21/18 08:36 Blood Blood Culture - Preliminary 09/19/18 08:55 Urine - Clean Void Mid-Stream Urine Culture - Final Escherichia coli 09/19/18 09:00 Blood Blood Culture - Preliminary Gram positive cocci 09/18/18 11:33 Blood Blood Culture - Preliminary Gram positive cocci 09/18/18 14:55 Nose MRSA (PCR) - Final Medications Active Medications: Acetaminophen (Tylenol) 650 mg PO Q4-6HP PRN PRN Reason: PAIN/FEVER > 101 Albuterol/Ipratropium (Duoneb) 3 ml NEB Q12 [facility] Last Admin: 09/22/18 08:11 Dose: 3 ml Documented by: Admin: 09/21/18 20:24 Dose: 3 ml Documented by: Admin: 09/21/18 08:47 Dose: 3 ml Documented by: Admin: 09/20/18 21:03 Dose: 3 ml Documented by: BETTE Amlodipine Besylate (Norvasc) 10 mg PO DAILY [facility] Last Admin: 09/22/18 09:00 Dose: 10 mg Documented by: Admin: 09/21/18 08:11 Dose: 10 mg Documented by: MGARRED Aspirin (Ecotrin) 325 mg PO DAILY [facility] Last Admin: 09/22/18 09:00 Dose: 325 mg Documented by: Admin: 09/21/18 08:11 Dose: 325 mg Documented by: MGARRED Budesonide (Pulmicort) 0.5 mg NEB Q12 [facility] Last Admin: 09/22/18 12:22 Dose: Not Given Documented by: THADDEUS Non-Admin Reason: Unavailable Admin: 09/21/18 20:24 Dose: 0.5 mg Documented by: Admin: 09/21/18 10:50 Dose: Not Given Documented by: MGARRED Non-Admin Reason: RT did not do Admin: 09/20/18 21:03 Dose: 0.5 mg Documented by: BETTE Carvedilol (Coreg) 6.25 mg PO BIDCC [facility] Admin: 09/22/18 07:56 Dose: 6.25 mg Documented by: Admin: 09/21/18 19:03 Dose: 6.25 mg Documented by: JUAN DANIEL Admin: 09/21/18 08:11 Dose: 6.25 mg Documented by: Admin: 09/20/18 17:17 Dose: 6.25 mg Documented by: SARA Citalopram Hydrobromide (Celexa) 20 mg PO QDAY [facility] Admin: 09/22/18 09:00 Dose: 20 mg Documented by: [email or web address] Admin: 09/21/18 08:11 Dose: 20 mg Documented by: MGARREBONI Docusate Sodium (Colace) 100 mg PO BID [facility] Admin: 09/22/18 11:23 Dose: Not Given Documented by: [email or web address] Non-Admin Reason: Patient Refused Admin: 09/21/18 20:05 Dose: Not Given Documented by: JUAN DANIEL Non-Admin Reason: Loose Stool Admin: 09/21/18 08:12 Dose: Not Given Documented by: MGARRED Non-Admin Reason: Loose Stool Admin: 09/20/18 20:18 Dose: 100 mg Documented by: ELVI Donepezil HCl (Aricept) 10 mg PO DAILY [facility] Admin: 09/22/18 12:19 Dose: 10 mg Documented by: [email or web address] Admin: 09/21/18 08:11 Dose: 10 mg Documented by: MGARRED Folic Acid (Folic Acid) 1 mg PO DAILY [facility] Admin: 09/22/18 09:00 Dose: 1 mg Documented by: [email or web address] Admin: 09/21/18 08:12 Dose: 1 mg Documented by: MGARRED Furosemide (Lasix) 40 mg IV BIDD [facility] Admin: 09/22/18 07:56 Dose: 40 mg Documented by: Admin: 09/21/18 15:18 Dose: 40 mg Documented by: Admin: 09/21/18 08:12 Dose: 40 mg Documented by: Admin: 09/20/18 15:30 Dose: 40 mg Documented by: SARA Heparin Sodium (Porcine) (Heparin) 5,000 unit SQ Q12 [facility] Last Admin: 09/22/18 10:00 Dose: 5,000 unit Documented by: Admin: 09/21/18 20:04 Dose: 5,000 unit Documented by: JUAN DANIEL Admin: 09/21/18 08:12 Dose: 5,000 unit Documented by: Admin: 09/20/18 20:15 Dose: 5,000 unit Documented by: ELVI Potassium Chloride 40 meq/ (Dextrose) 520 mls @ 130 mls/hr IV UD PRN PRN Reason: K+ = or < 3.5 Magnesium Sulfate (Magnesium Sulfate) 2 gm in 50 mls @ 50 mls/hr IV UD PRN PRN Reason: MG = or < 1.7 Acetaminophen (Ofirmev) 1,000 mg in 100 mls @ 200 mls/hr IV Q6HP PRN PRN Reason: PAIN/FEVER > 101 Vancomycin HCl 500 mg/ Sodium (Chloride) 100 mls @ 100 mls/hr IV DAILY [facility] Last Admin: 09/22/18 10:00 Dose: 100 mls/hr Documented by: THADDEUS Iron Carb/Multivit/Tank Washer/Folic Acid (Multivitamin W/Minerals) 1 tab PO DAILY [facility] Last Admin: 09/22/18 12:21 Dose: 1 tab Documented by: Admin: 09/21/18 08:11 Dose: 1 tab Documented by: MGARRED [facility]othy[facility]) [facility] Admin: 09/22/18 07:49 Dose: 25 mcg Documented by: Admin: 09/21/18 07:08 Dose: 25 mcg Documented by: MGARRED Levothyroxine Sodium (Synthroid) 112 mcg PO QAMAC [facility] Last Admin: 09/22/18 07:48 Dose: 112 mcg Documented by: Admin: 09/21/18 07:08 Dose: 112 mcg Documented by: MGARRED Melatonin (Melatonin 3mg Tablet) 3 mg PO HSP PRN PRN Reason: Insomnia Memantine (Namenda) 10 mg PO BID [facility] Last Admin: 09/22/18 12:21 Dose: 10 mg Documented by: Admin: 09/21/18 20:04 Dose: 10 mg Documented by: JUAN DANIEL Admin: 09/21/18 08:11 Dose: 10 mg Documented by: Admin: 09/20/18 20:16 Dose: 10 mg Documented by: ELVI Ondansetron HCl (Zofran) 4 mg IV Q4-6HP PRN PRN Reason: Nausea And Vomiting Fluticasone/Vilanterol [Breo Ellipta] 100-25 Mcg Inhaler 1 dose INH QDAY [facility] Last Admin: 09/22/18 11:24 Dose: Not Given Documented by: THADDEUS Non-Admin Reason: Unavailable Admin: 09/21/18 08:12 Dose: Not Given Documented by: CATERINA Non-Admin Reason: Unavailable Senna/Docusate Sodium (Senna Plus Tablet) 1 tab PO [facility] Last Admin: 09/21/18 20:04 Dose: Not Given Documented by: JUAN DANIEL Non-Admin Reason: Loose Stool Admin: 09/20/18 20:18 Dose: 1 tab Documented by: ELVI Sodium Chloride (Saline Flush) 10 ml IV Q8 [facility] Last Admin: 09/22/18 10:00 Dose: 10 ml Documented by: Admin: 09/22/18 07:56 Dose: 10 ml Documented by: Admin: 09/22/18 05:32 Dose: Not Given Documented by: JUAN DANIEL Non-Admin Reason: Patient Asleep Admin: 09/21/18 20:07 Dose: 10 ml Documented by: JUAN DANIEL Admin: 09/21/18 13:51 Dose: 10 ml Documented by: Admin: 09/21/18 06:14 Dose: 10 ml Documented by: Admin: 09/20/18 20:19 Dose: 10 ml Documented by: Admin: 09/20/18 13:58 Dose: 10 ml Documented by: SARA Tamsulosin HCl (Flomax) 0.4 mg PO [facility] Last Admin: 09/21/18 20:03 Dose: 0.4 mg Documented by: JUAN DANIEL Admin: 09/20/18 20:18 Dose: 0.4 mg Documented by: ELVI Thiamine HCl (Vitamin B1) 100 mg PO DAILY [facility] Last Admin: 09/22/18 09:00 Dose: 100 mg Documented by: [email or web address] Admin: 09/21/18 08:12 Dose: 100 mg Documented by: MGAG Throat Lozenges (Cepacol) 1 lozenge PO Q2HP PRN PRN Reason: Sore Throat Trazodone HCl (Desyrel) 50 mg PO HSP PRN PRN Reason: Insomnia Vancomycin HCl (Vancomycin Per Pharmacy) 1 order IV UD [facility]; Protocol Vitamin D (Vitamin D3) 1,000 unit PO DAILY [facility] Last Admin: 09/22/18 09:00 Dose: 1,000 unit Documented by: [email or web address] Admin: 09/21/18 08:11 Dose: 1,000 unit Documented by: MGAG Assessment and Plan - Narrative A/P Narrative: Assessment: 1. Corynebacterium species bacteremia: on 2 consecutive days [09/18/18, 09/19/18] preliminary cultures suggesting C. jeikium, sens to Vanc Possible source of entry is skin given patient's extensive bruising 2. Asymptomatic bacteriuria: Urine cultures growing E. coli with CFU of 50,000 to 60,000/mL 3. CHF exacerbation: resolving - pt on room air 4. Leucocytosis: unclear etiology as pt is getting better clinically, is off O2. - might be due to aspiration pneumonitis. Pt could be watched without adding additional antibiotics for now as she is doing better Recommendations: Continue IV vancomycin per pharmacy assisted dosing If repeat blood cultures from 09/21 are negative by end of today, will consider a total of 10-day course of IV Vanc through a midline - consider PATHOLOGY LABORATORY AIDE eval for assessing swallowing and ruling out aspiration will follow Michoacano Malin MD Infectious disease
[2018-09-22] MEDS: BENZOCAINE/MENTHOL 1 LOZENGE PO PRN ×2 (17:45→21:07)
[2018-09-22] MEDS: SENNOSIDES/DOCUSATE SODIUM 1 TAB TABLET PO SCH (21:01)
[2018-09-22] MEDS: TAMSULOSIN 0.4 MG CAPSULE PO SCH (21:01)
[2018-09-23] MEDS: 0.9 % SODIUM CHLORIDE 10 ML SYRINGE IV SCH (04:51)
[2018-09-23 05:45] LABS: Hematocrit 29.3 % (36.0-48.0); Hemoglobin 9.4 g/dL (12.0-15.0); Mean Cell Volume 85.2 fL (80.0-100.0); Mean Corpuscular HGB Conc 32.2 g/dL (31.0-36.0); Mean Platelet Volume 8.6 fL (7.4-10.4); Platelet Count 167 K/mcL (140-440); RBC 3.44 M/mcL (4.00-5.20); Red Cell Distribution Width 18.7 % (11.5-14.5); WBC 19.9 K/mcL (4.5-11.0)
[2018-09-23 06:03] LABS: ALT/SGPT 10 U/l (0-40); AST/SGOT 16 U/l (0-37); Albumin 3.5 gm/dL (3.2-5.2); Albumin/Globulin Ratio 1.2 (1.0-2.3); Alkaline Phosphatase 71 U/L (39-117); Bilirubin,Direct < 0.2 mg/dL (0.0-0.3); Bilirubin,Total 0.4 mg/dL (0.0-1.0); Blood Urea Nitrogen 42 mg/dl (8-23); Calcium 8.3 mg/dl (8.6-10.4); Carbon Dioxide 28 mmol/L (22-30); Chloride 97 mmol/L (96-108); Globulin 2.9 gm/dL (2.2-3.7); Glomerular Filtration Rate 23; Glucose 83 mg/dL (70-105); Lactate Dehydrogenase 213 U/L (94-250); Phosphorous 4.3 mg/dL (2.7-4.5); Triglycerides 80 mg/dl (<150); Uric Acid 9.8 mg/dL (2.5-8.0)
[2018-09-23 06:31] LABS: Anisocytosis 1+ (NONE SEEN); Eosinophils % (Manual) 2 % (0-7); Lymphocytes % 63 % (15-49); Monocytes % (Manual) 5 % (1-12); Platelet Estimate NORMAL (NORMAL); RBC Morphology ABNORMAL (NORMAL); Reactive Lymphocytes 4 % (0-2); Segmented Neutrophils % 26 % (38-78)
[2018-09-23] MEDS: LEVOTHYROXINE SODIUM 112 MCG TABLET PO SCH (07:28)
[2018-09-23] MEDS: LEVOTHYROXINE 25 MCG TABLET PO SCH (07:28)
[2018-09-23] MEDS: IPRATROPIUM/ALBUTEROL 3 ML AMPUL.NEB NEB SCH (07:29)
[2018-09-23] MEDS: DONEPEZIL 10 MG TABLET PO SCH (09:19)
[2018-09-23] MEDS: HEPARIN 5,000 UNIT/ML VIAL SQ SCH (09:19)
[2018-09-23] MEDS: VITAMIN D3 1,000 UNIT TABLET PO SCH (09:19)
[2018-09-23] MEDS: THIAMINE 100 MG TABLET PO SCH (09:19)
[2018-09-23] MEDS: FUROSEMIDE 40 MG/4 ML VIAL IV SCH (09:19)
[2018-09-23] MEDS: CITALOPRAM 20 MG TABLET PO SCH (09:20)
[2018-09-23] MEDS: MEMANTINE 10 MG TABLET PO SCH (09:20)
[2018-09-23] MEDS: ASPIRIN 325 MG ENTERIC COATED TABLET PO SCH (09:20)
[2018-09-23] MEDS: FOLIC ACID 1 MG TABLET PO SCH (09:21)
[2018-09-23] MEDS: MULTIVIT,THER IRON,CA,FA & MIN 1 TABLET PO SCH (09:21)
[2018-09-23] MEDS: CARVEDILOL 6.25 MG TABLET PO SCH (09:21)
[2018-09-23] MEDS: amLODIPine 10 MG TABLET PO SCH (09:21)
[2018-09-23] MEDS: BUDESONIDE 0.5 MG/2 ML AMPUL.NEB NEB SCH (09:42)
[2018-09-23] MEDS: VANCOMYCIN 500 MG in 0.9 % SODIUM CHLORIDE 100 ML IV SCH (10:38)
[2018-09-23] MEDS: DOCUSATE SODIUM 100 MG CAPSULE PO SCH (12:04)
[2018-09-23] MEDS: Fluticasone/Vilanterol [Breo Ellipta] 100-25 Mcg Inhaler INH SCH (12:05)
--- NOTE | 2018-09-23 12:45 | Discharge Summary ---
Medical - DS: Prov Patient information: Note initiated : 09/23/18 at 12:42 pm Service Date, if different from initiated Date: [] Patient: Mihaela Drkae 88 y/o F admitted on 09/18/18 for Shortness of breath. Chief Complaint: [] Date of admission: 09/18/18 14:12 Discharge date: 09/23/18 Primary care physician: William Redd M.D., F.A.A.F.P. Consults: 09/18/18 Consult to Physician [CONS] Stat Comment: Consulting Provider: Prasanna Luther Reason For Exam: Physician to Consult 09/21/18 08:00 Consult to Infectious Disease [CONS] Routine Comment: bactermia Consulting Provider: Michoacano Malin Reason For Exam: Physician to Consult Discharging clinician: Ramesh Tidwell Medical - DS: Meds - Discharge Medications Prescriptions: HYDROcodone/APAP 5/325MG [Kneeland 5-325Mg] 1 tab PO Q6HP PRN #20 tab PRN Reason: Pain Active and Home Medications: Home Medications levothyroxine 137 mcg tablet 137 mcg PO QDAY tab 09/03/14 [History Confirmed 09/18/18 Last Taken Unknown] carboxymethylcellulose sodium 0.5 % eye drops 1 drp OPHTHALMIC QDAY PRN ml 12/10/17 [History Confirmed 09/18/18 Last Taken Unknown] cholecalciferol (vitamin D3) 1,000 unit capsule 1,000 unit PO QDAY 12/10/17 [History Confirmed 09/18/18 Last Taken Unknown] memantine 5 mg tablet 10 mg PO BID tab 12/10/17 [History Confirmed 09/18/18 Last Taken Unknown] citalopram 20 mg tablet 20 mg PO QDAY #7 tab 12/26/17 [Rx Confirmed 09/18/18 Last Taken Unknown] carvedilol 6.25 mg tablet 6.25 mg PO BID 30 Days #60 tab 07/13/18 [Rx Confirmed 09/18/18 Last Taken Unknown] fluticasone furoate 100 mcg-vilanterol 25 mcg/dose inhalation powder 1 inh INHALATION QDAY #28 each 07/30/18 [Rx Confirmed 09/18/18 Last Taken Unknown] capsaicin 0.1 % topical cream 1 applic TOPICAL BID PRN 08/04/18 [History Confirmed 09/18/18 Last Taken Unknown] Acetaminophen [Pain Reliever] 500 mg PO Q8 PRN 09/18/18 [History Confirmed 09/18/18 Last Taken Unknown] Acetaminophen/Chlorpheniramine [Coricidin Hbp Cold & Flu Tab] 2 each PO Q6 09/18/18 [History Confirmed 09/18/18 Last Taken Unknown] Aspirin [Lite Coat Aspirin] 325 mg PO DAILY 09/18/18 [History Confirmed 09/18/18 Last Taken Unknown] Donepezil [Aricept] 10 mg PO DAILY 09/18/18 [History Confirmed 09/18/18 Last Taken Unknown] Menthol [Cough Drops] 5 mg MM PRN PRN 09/18/18 [History Confirmed 09/18/18 Last Taken Unknown] Tamsulosin [Flomax] 0.4 mg PO ONCE 09/18/18 [History Confirmed 09/18/18 Last Taken Unknown] HYDROcodone/APAP 5/325MG [Kneeland 5-325Mg] 1 tab PO Q6HP PRN #20 tab 09/19/18 [Rx Last Taken Unknown] amlodipine 5 mg tablet 10 mg PO QDAY #60 tab 09/23/18 [Rx Last Taken Unknown] Medical - DS: Hosp Hospital course: Ms. Drake is a 88 year old F resident of [facility] who presents to the ER with 3-day onset of worsening shortness of breath. Patient has been at baseline state of health however over the last 48 hours has dramatically declined with increasing shortness of breath and decreasing mobility and functionality. Patient has not been able to perform activities of daily living. She was subsequently evaluated at the ER. Initial work-up was consistent with CHF exacerbation on imaging along with white count over 20,000. Patient was started on antibiotic coverage along with initiation of diuresis. However exact source of infection could not be identified. Echocardiogram from April 2018 shows preserved EF. Hospitalist service was consulted for admission in light of above. At the time of evaluation patient is alert oriented. She is feeling better. Able to answer most of the question and endorsed to history as above. She denies recent changes in medication. She denies productive sputum, shaking chills, chest pain or unilateral weakness. She further denies diarrhea dysuria joint pain but endorses to frequent bruising. She denies high salt diet. She denies choking episodes. 09/19-patient doing well. Diuresed well overnight. Improved shortness of breath. Able to talk in full sentences. Blood cultures positive for gram- positive cocci. Vancomycin initiated. Unclear source. However white count down from 20,400-16.3. Afebrile. UA shows significant pyuria. Await cultures. Continue antibiotic coverage. 09/20-patient clinically much improved however persistent leukocytosis at 18.8. On antibiotic coverage. Lymphocyte predominance. Prior history of leukemia. Stable hemodynamics. Transfer to medical floor. Anticipate discharge in 24 to 48 hours. Renal function stable with creatinine at 2.1 baseline. Urine culture gram-negative bacillus. Await culture sensitivities. 09/21 Patient seen and examined, no acute overnight events. The patient's blood culture bottle is growing gram-positive cocci, repeat cultures ordered, infectious disease has been consulted. Urine cultures growing gram-negative bacillus Patient otherwise is doing well has no complaints or concerns. 09/22 Patient seen and examined, sitting comfortably in the chair tolerate p.o. diet fine has no complaints. Afebrile but white count is persistently elevated. Blood cultures growing corynebacterium, urine culture is E. coli infectious disease is following. Given persistence of WBC count we will get a CT chest abdomen and pelvis to rule out any other source. 09/23 patient seen examined, no acute issues, tolerating po well repeat blood cx neg Plan for 10 days of total vanco, mid line to be placed today anticipate d/c to Swing status after mid line placement In Summary patient admitted to the hospital with diagnosis of UTI and gram positive bactermia, mild CHF exacerbation tereated with diuresis, IV antibiotics, pt has GPC bactermemia, corynebacteria, and gram neg UTI, treated appropriately Plan for total of 10 days of ABX, last day 10/01/2017 Patient will be transferred to swing bed status at this facility for ongoing antibiotics treatment and rehab Pt had CT chest abdomen and pelvis which was neg for any other focus of infection, she has chronically elevated wbc count from h/o past leukamemia Discharge diagnosis: bactremia, UTI - Time Spent with Patient Total time spent providing and/or coordinating discharge services: Greater than 30 minutes Medical - DS: Exam - Constitutional Vitals: Vital Signs Temp Pulse Pulse Resp BP BP Pulse Ox 09/23/18 11:57 99 09/23/18 11:33 97.7 F 78 16 151/65 09/23/18 08:07 98.1 F 82 14 138/61 94 09/23/18 07:31 90 18 09/23/18 07:29 90 18 09/23/18 03:00 98.1 F 81 16 139/67 92 09/22/18 23:00 97.6 F 75 16 142/62 95 09/22/18 20:45 88 18 09/22/18 19:01 98.1 F 83 16 132/65 95 09/22/18 16:00 98.2 F 86 18 126/93 93 Intake and Output 09/22/18 09/23/18 09/23/18 21:59 05:59 13:59 Intake Total 300 200 240 Output Total 350 3 100 Balance -50 197 140 Intake: Oral 300 200 240 Output: Void Amount 350 100 # of times incontinent of urine 3 Other: Meal Dinner Breakfast Percent of Meal Consumed 100% 75% Urine Odor Normal Stool Size Small Smear Small Stool Color Green Green Green Black # Voids 1 # Bowel Movements 1 # of times incontinent of 1 Bowels Weight 127 lb 8 oz Additional comments: Constitutional; Afebrile, cooperative, alert, not in distress. Respiratory system: Air Entry equal on both sides, No crackles or wheezing, no rhonchi. CVS- Rate rhythm regular, S1,S2 heard, no gallop, no rub. Abdomen- Soft nontender abdomen, no organomegaly, no tenderness, no guarding or rigidity, [employer]- AOOx3, moving all extremities, no gross focal deficit noted. Medical - DS: Data Labs on day of discharge: Labs from last 24 hours 09/23/18 09/23/18 03:48 03:48 WBC 19.9 H RBC 3.44 L Hgb 9.4 L Hct 29.3 L MCV 85.2 MCH 27.4 MCHC 32.2 RDW 18.7 H Plt Count 167 MPV 8.6 Total Counted 100 Seg Neutrophils % 26 L Band Neutrophils % Not Reportable Lymphocytes % 63 H Monocytes % (Manual) 5 Eosinophils % (Manual) 2 Reactive Lymphocytes 4 H Platelet Estimate Normal RBC Morphology Abnormal Anisocytosis 1+ A Sodium 138 Potassium 3.7 Chloride 97 Carbon Dioxide 28 Anion Gap 13.0 BUN 42 H Creatinine 1.9 H GFR Calculation 23 Glucose 83 Uric Acid 9.8 H Calcium 8.3 L Phosphorus 4.3 Magnesium 2.4 Total Bilirubin 0.4 Direct Bilirubin < 0.2 GGT 13 AST 16 ALT 10 Alkaline Phosphatase 71 Lactate Dehydrogenase 213 Total Protein 6.4 Albumin 3.5 Globulin 2.9 Albumin/Globulin Ratio 1.2 Triglycerides 80 Preliminary micro results at discharge 09/19/18 09:13 Blood Culture - Preliminary Blood 09/21/18 08:46 Blood Culture - Preliminary Blood 09/21/18 08:36 Blood Culture - Preliminary Blood 09/19/18 09:00 Blood Culture - Preliminary Blood Gram positive cocci 09/18/18 11:33 Blood Culture - Preliminary Blood Gram positive cocci Medical - DS: A/P - Patient/Caregiver Discharge Instructions Diet: Regular Diet Prescriptions: HYDROcodone/APAP 5/325MG [Kneeland 5-325Mg] 1 tab PO Q6HP PRN #20 tab PRN Reason: Pain - Follow up Plan Follow up with: William Redd MD, FAAFP [Primary Care Provider] - Disposition: Xfer As Swing Bed ([facility]) Prognosis: Fair Rehab Potential: Fair I certify that the patient requires SNF services: Yes Overall status at discharge: patient is progressing back to baseline Medical - DS: Qual - VTE Deep Vein Thrombosis/Pulmonary Embolism Present on Admission: No
--- NOTE | 2018-09-23 15:56 | Infectious Disease Prog Note ---
Subjective Patient information: Note initiated : 09/23/18 at 3:43 pm Service Date, if different from initiated Date: [] Patient: Mihaela Drake 88 y/o F admitted on 09/18/18 for Shortness of breath. Chief Complaint: [] Interval history: Pt feels fine. Denies any fever, chills, n/v. Endorses loose stools x 1. Shared the plan to do 7 more days of IV Vanc through a midline for bacteria found in her blood. Objective Objective Narrative: ao x 3, in nad no thrush extensive bruising over both upper extremities chest has bibasilar crackles, rest vesicular breath sounds s1 s2 normal, no m/r/g bs ++ nttd no edema - Vital Signs Vital signs: Vital Signs Temp Pulse Pulse Resp BP BP Pulse Ox 09/23/18 11:57 99 09/23/18 11:33 36.5 C 78 16 151/65 09/23/18 08:07 36.7 C 82 14 138/61 94 09/23/18 07:31 90 18 09/23/18 07:29 90 18 09/23/18 03:00 36.7 C 81 16 139/67 92 09/22/18 23:00 36.4 C 75 16 142/62 95 09/22/18 20:45 88 18 09/22/18 19:01 36.7 C 83 16 132/65 95 09/22/18 16:00 36.8 C 86 18 126/93 93 Intake and Output 09/23/18 09/23/18 09/23/18 05:59 13:59 21:59 Intake Total 200 240 Output Total 3 100 Balance 197 140 Intake: Oral 200 240 Output: Void Amount 100 # of times incontinent of urine 3 Other: Meal Breakfast Percent of Meal Consumed 75% Urine Odor Normal Stool Size Smear Small Stool Color Green Green # of times incontinent of 1 Bowels Intake & Output: Intake & Output 09/23/18 09/23/18 09/23/18 05:59 13:59 21:59 Intake Total 200 240 Output Total 3 100 Balance 197 140 Intake: Oral 200 240 Output: Void Amount 100 # of times incontinent of urine 3 Other: Meal Breakfast Percent of Meal Consumed 75% Urine Odor Normal Stool Size Smear Small Stool Color Green Green # of times incontinent of 1 Bowels - Lab 09/23/18 03:48 07/17/19 03:48 Most recent lab results Calcium 8.3 mg/dl (8.6-10.4) L 09/23/18 03:48 Phosphorus 4.3 mg/dL (2.7-4.5) 09/23/18 03:48 Magnesium 2.4 mg/dL (1.6-2.5) 09/23/18 03:48 Microbiology 09/18/18 11:25 Blood Blood Culture - Final 09/19/18 09:13 Blood Blood Culture - Preliminary 09/21/18 08:46 Blood Blood Culture - Preliminary 09/21/18 08:36 Blood Blood Culture - Preliminary 09/19/18 08:55 Urine - Clean Void Mid-Stream Urine Culture - Final Escherichia coli 09/19/18 09:00 Blood Blood Culture - Preliminary Gram positive cocci 09/18/18 11:33 Blood Blood Culture - Preliminary Gram positive cocci 09/18/18 14:55 Nose MRSA (PCR) - Final Assessment and Plan - Narrative A/P Narrative: Assessment: 1. Corynebacterium species bacteremia: on 2 consecutive days [09/18/18, 09/19/18] blood cultures suggesting C. jeikium, sens to Vanc Possible source of entry is skin given patient's extensive bruising - blood Cx neg since 09/21 2. Asymptomatic bacteriuria: Urine cultures growing E. coli with CFU of 50,000 to 60,000/mL 3. CHF exacerbation: resolving - pt on room air 4. Leucocytosis: unclear etiology as pt is getting better clinically, is off O2. - per primary team is sec to hx of leukemia in past Recommendations: Continue IV vancomycin 500 mg daily (random levels of 13-14 in last 2 days) through midline (placed today), stop date 09/30/18. - Check random Vanc blood levels every 3 days while on therapy will sign off. Michoacano Malin MD Infectious disease
[2018-09-23] MEDS ORDERED: 0.9 % SODIUM CHLORIDE 10 ML SYRINGE IV SCH (21:00)
== END 2018-09-23 12:48 | disposition swing bed (61) | DRG 871 ==
LOC: ED 09:38 → ICU 14:12 → MEDSUR 09-20 11:05
PROVIDERS: ADMIT Internal Medicine; ATTEND Internal Medicine